=== PATIENT | female | born 1970 | race Hispanic/Latino ===

== ENCOUNTER → 2018-02-20 09:25 | Outpatient (CLI) | payer OTHER, SELFPAY ==
[2018-02-23 10:31] LABS: HPV Reflexed? NOT INDICATED
== END ==
PROVIDERS: Visit Provider Obstetrics & Gynecology
DX: Z12.4 Encounter for screening for malignant neoplasm of cervix (principal)
CPT/HCPCS: 88175; G0145

== ENCOUNTER → 2018-05-31 13:22 | Outpatient (CLI) | payer OTHER, SELFPAY ==
--- NOTE | 2018-05-31 13:26 | BI_ITS ---
MAMMOGRAPHY - BILATERAL SCREENING REASON FOR EXAM: Female, 48 years old. Routine annual screening examination. PERTINENT HISTORY: Non-contributory. TECHNIQUE: Digital bilateral breast amrik (3D mammographic acquisition) in the CC and MLO projections. 2-D mediolateral oblique (MLO) and craniocaudad (CC) views of both breasts were obtained. CAD: Full Field Digital Mammography with Computer Added Detection was performed. COMPARISON: Comparison is made with prior study dated May 30, 2017 and May 06, 2016. FINDINGS: Breast Composition: The breasts are heterogeneously dense, which may obscure small masses. There are no dominant masses or suspicious calcifications. No other significant abnormalities are identified. There has been no significant change since the prior study. BI/SCREENING MAMM (CAD), BILAT IMPRESSION: Stable bilateral screening mammogram. Yearly follow-up mammogram recommended. (A) ASSESSMENT CATEGORY: BIRADS Category 1: Negative. A letter regarding these results will be sent to the patient by the facility within 30 days. Approximately 10% of breast cancers are not detected by mammography. A normal mammogram should not delay biopsy of a clinically suspicious abnormality. [id number] Electronically Signed: Mike León MD at 15:14 EDT Tel [phone], Service support ,
== END ==
PROVIDERS: Family Provider Family Medicine; PCP Family Medicine; Visit Provider Obstetrics & Gynecology
DX: Z12.31 Encounter for screening mammogram for malignant neoplasm of breast (principal)
CPT/HCPCS: 77063; 77067

== ENCOUNTER 2019-03-22 08:08 | Observation (INO) | payer OTHER, SELFPAY ==
[2019-03-22] VITALS (13 sets, daily range): BP systolic 96–132; BP diastolic 53–80; PULSE 85–112; RESP 12–26; TEMP 36.2–37.1; O2SAT 87–98; BMI 33.0; BMI 33.4
--- NOTE | 2019-03-22 08:32 | RAD_ITS ---
STUDY: X-RAY CHEST REASON FOR EXAM: Female, 49 years old. Cough and shortness of breath. TECHNIQUE: PA and lateral views of the chest. COMPARISON: Comparison is made with prior study dated August 21, 2014. FINDINGS: The lungs are clear and expanded. There is no demonstrated pleural abnormality. Normal size heart. Normal mediastinum and lionel. Normal visualized pulmonary arteries. Normal visualized aortic arch and descending thoracic aorta. Normal visualized thoracic spine. Normal visualized ribs, clavicles, and shoulders. There is no demonstrated abnormality of the visualized soft tissue structures of the upper abdomen. RAD/Chest PA and Lateral IMPRESSION: Normal x-ray examination of the chest. Electronically Signed: Mike León, at 9:39 EDT , Service support ,
--- NOTE | 2019-03-22 08:34 | ED.VISSUMM ---
- ER Visit Summary Date of Service: 03/22/19 Chief Complaint: Dyspnea History of Present Illness: The patient is a 49 F who presents emergency department with a cough and shortness of breath. Patient states this is been progressive for 1 week. Significantly worse over the past 2 days. She notes a history of asthma. She has been using a nebulizer twice a day with no relief. She denies any fever. She denies any phlegm production. Former smoker. She sees [facility] pulmonology Dr. Jimenez. She notes that her asthma typically has flares in the change of seasons. She notes that the pollen this year has been very bad. Physical Examination: Afebrile vital signs are stable Gen: Well-nourished well-developed Head: Normocephalic atraumatic Eyes: Perrl EOMI ENT: TMs clear no rhinorrhea moist mucous membranes Neck: Supple no lymphadenopathy no JVD nontender CVS: Regular tachycardic rate rhythm no murmurs normal S1-S2 Respiratory: Patient with coughing fits. She has diminished breath sounds bilaterally and faint expiratory wheezing. Chest nontender Abdomen: Soft nontender nondistended normal bowel sounds no masses Back: Nontender Extremity: Nontender no edema Skin: Normal color no rash Neuro: alert orientated ?3 CN II-XII intact normal strength sensation reflexes gait cerebellar Psych: Normal affect normal mood Test Results: Chest x-ray is obtained. Emergency Department Course and Treatment: Patient received prednisone, DuoNeb and 2 albuterol treatments. After the breathing treatments patient lung sounds were significantly improved. She had a brief period where her pulse ox was as low as 86%. After supplemental oxygen and rest. We remove the oxygen her pulse ox was 90 to 92%. She ambulated in the same range. He states her lungs feel much better. Once the patient got back to the room her pulse ox was down to 88% on room air. We will plan for an observational stay. Impression: 1. Acute exacerbation of asthma This note was generated with [employer] dictation software. It may contain incorrect words, spelling, and punctuation that were not noted in review of the chart prior to signing ED Disposition - Plan for ED Patient:
[2019-03-22] MEDS: predniSONE 20 MG Tablet 60 MG PO (08:36)
[2019-03-22] MEDS: Ipratropium/Albuterol Sulfate 3 ML AMPUL.NEB INHALATION ×4 (08:41→23:03)
[2019-03-22] MEDS: Albuterol 2.5 MG/3 ML VIAL.NEB. INHALATION ×3 (08:41→09:10)
--- NOTE | 2019-03-22 08:41 | ED.DCSUM_ITS ---
- ER Visit Summary Date of Service: 03/22/19 Chief Complaint: Dyspnea History of Present Illness: The patient is a 49 F who presents emergency department with a cough and shortness of breath. Patient states this is been progressive for 1 week. Significantly worse over the past 2 days. She notes a history of asthma. She has been using a nebulizer twice a day with no relief. She denies any fever. She denies any phlegm production. Former smoker. She sees [facility] pulmonology Dr. Jimenez. She notes that her asthma typically has flares in the change of seasons. She notes that the pollen this year has been very bad. Physical Examination: Afebrile vital signs are stable Gen: Well-nourished well-developed Head: Normocephalic atraumatic Eyes: Perrl EOMI ENT: TMs clear no rhinorrhea moist mucous membranes Neck: Supple no lymphadenopathy no JVD nontender CVS: Regular tachycardic rate rhythm no murmurs normal S1-S2 Respiratory: Patient with coughing fits. She has diminished breath sounds bilaterally and faint expiratory wheezing. Chest nontender Abdomen: Soft nontender nondistended normal bowel sounds no masses Back: Nontender Extremity: Nontender no edema Skin: Normal color no rash Neuro: alert orientated ?3 CN II-XII intact normal strength sensation reflexes gait cerebellar Psych: Normal affect normal mood Test Results: Chest x-ray is obtained. Emergency Department Course and Treatment: Patient received prednisone, DuoNeb and 2 albuterol treatments. After the breathing treatments patient lung sounds were significantly improved. She had a brief period where her pulse ox was as low as 86%. After supplemental oxygen and rest. We remove the oxygen her pulse ox was 90 to 92%. She ambulated in the same range. He states her lungs feel much better. Once the patient got back to the room her pulse ox was down to 88% on room air. We will plan for an observational stay. Impression: 1. Acute exacerbation of asthma This note was generated with [employer] dictation software. It may contain incorrect words, spelling, and punctuation that were not noted in review of the chart prior to signing ED Disposition - Plan for ED Patient:
--- NOTE | 2019-03-22 09:50 | NURSING ---
DR SILVERIO NOTIFIED SPO2=86-87% ON RA AT REST. WHEN AWAKE SPO2 INCREASES TO 91%. O2 PLACED AT 2L NC. STATES HE WILL PLACE NEW ORDERS.
[2019-03-22 10:10] LABS: Absolute Lymphocyte Count 1.23 X10^3/ul (0.83-4.51); Absolute Neutrophil Count 7.7 X10^3/uL (2.0-7.7); Basophil# 0.01 X10^3/uL; Basophil% 0.1 % (0-1); Eosinophil# 0.75 X10^3/uL; Eosinophils% 7.4 % (0-5); Lymphocyte # 1.23 X10^3/ul (4.0); Lymphocyte % 12.1 % (19-41); Mean Corp Hgb Conc 30.3 g/gl (32-36); Mean Corpuscular Hgb 22.3 pg (27.0-32.0); Mean Corpuscular Volume 73.5 fL (81-99); Mean Platelet Vol. 9.2 fl (6.2-12.0); Monocyte% 4.9 % (0-10); Neutrophil % 75.4 % (47-70); Platelet Count 256 K/mm3 (150-450); RBC Distribution Width SD 42.8 fl (35.1-43.9); Red Blood Count 4.49 M/mm3 (4.2-5.4); White Blood Count 10.2 K/mm3 (4.4-11.0)
[2019-03-22 10:12] LABS: Differential Indicated SCAN CRITERIA MET; POSITIVE COUNT NO; POSITIVE DIFFERENTIAL NO; POSITIVE MORPHOLOGY YES
[2019-03-22 10:24] LABS: Anion Gap 9 (5-15); BUN 8 mg/dL (7-18); BUN/Creat Ratio 9.5 RATIO (10-20); Calcium,Total 8.4 mg/dL (8.5-10.1); Chloride 107 mmol/L (98-107); Creatinine, Serum 0.84 mg/dL (0.55-1.02); EST Glomerular Filtration Rate 76 mL/min (>60); Est Glom Filt Rate - Afr Amer 92 mL/min (>60); Estimated Creatinine Clearance 61.13 ml/min; Glucose 117 mg/dL (74-106); Potassium 3.4 mmol/L (3.5-5.1); Sodium Level 140 mmol/L (136-145)
--- NOTE | 2019-03-22 11:03 | ED.RN ---
THIS RN TO BEDSIDE TO DISCHARGE PATIENT, PULSE OX 88% ON ROOM AIR, DR. SILVERIO MADE AWARE.
--- NOTE | 2019-03-22 11:32 | HP.PCM_ITS ---
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 It also has dry cough and bilateral chest pain on coughing, pleuritic in nature. Shortness of breath and cough started a week ago and she got Protonix from her realty loan specialist initially she felt better for 2 days but got worse. Denies sick contact or fever, chills or sinus congestion or postnasal drip. In ER, she is found hypoxic 87% on room air, tachypneic RR 26/min, labored breathing and mild tachycardic. No fever or chills. Chest x-ray does not show acute abnormality. Past Medical History Past Medical History (Chronic Problems): Chronic Problems GERD (Chronic) Allergies codeine Adverse Reaction (Verified 03/22/19 08:09) Nausea Home Medications: Ambulatory Orders Medication Instructions Recorded Albuterol Aerosols [Ventolin 2.5 mg INHALATION Q4H PRN PRN 08/24/14 Aerosols] Albuterol IH (ProAir) [Proair Hfa] 2 puff INHALATION Q4H PRN PRN 08/24/14 Citalopram [Celexa] 10 mg PO DAILY 08/24/14 Montelukast [Singulair] 10 mg PO DAILY 03/22/19 Pantoprazole Sodium [Protonix] 40 mg PO DAILY 03/22/19 Risperidone [Risperdal] 0.5 mg PO DAILY 03/22/19 Smoking Status: Former smoker - Quit in 2008. Started to smoking cigarette in 20s, about 18 to 19 pack years smoking - *Family History Maternal History Items: - - Maternal grandmother has asthma. Review of Systems Constitutional: Denies: Chills, Fever, Weight Change HEENT: Reports: Head Aches. Denies: Sinus Congestion, Sinus Drainage Cardiovascular: Reports: Chest Pain. Denies: Palpitations Respiratory: Reports: Cough, Pleuritic Pain, Shortness of Breath, Shortness of breath at rest, Shortness of breath upon exertion, Wheezing. Denies: Sputum production Gastrointestinal: Denies: Abdominal Pain, Nausea, Vomiting Genitourinary: Denies: Dysuria Musculoskeletal: Denies: Joint Pain, Joint Tenderness Skin: Denies: Rash, Wounds Neurological: Denies: Numbness, Tingling, Focal weakness Psychiatric: Denies: Anxiety, Depression, Homicidal Ideations, Suicidal Ideations Hematologic/ Lymphatic: Denies: Easy Bruising, Easy Bleeding VTE Information - Inpt Only VTE Present on Admission: No VTE Mechan Device Prophylaxis: None VTE Pharm Prophylaxis ordered?: Yes Patient Problems: Active and Suspected Problems Asthma exacerbation (Acute) - Physical Exam General: Alert, Oriented x3, Cooperative HEENT: Atraumatic, PERRLA, EOMI, Normocephalic Oral: Dry Mucosa Neck: Supple, No JVD, Negative Carotid Bruits Lungs: Diminished - Entry is diminished bilaterally., Short of Breath, Tachypneic, Using Accessory Muscles, Wheezes Cardiovascular: Regular rate, Regular Rhythm, Normal S1, Normal S2, No murmurs Abdomen: Bowel Sounds Present, Soft, Non Tender, Non-Distended Extremities: No edema, Capillary Refill Less than 3 Seconds Skin: No rashes, No breakdown Musculoskeletal: No Tenderness to Palpation of Joints or Extremities Lymphatic: No Cervical, Supraclavicular, or Inguinal Adenopathy Neurological: Cranial nerves II-XII grossly intact, Deep Tendon Reflexes 2+/4 and Symmetrical, Neuro grossly intact, Motor Exam 5/5 strength throughout Psych/Mental Status: Normal Affect, Appropriate Vital Signs Temp Pulse Resp BP Pulse Ox 98.7 F 102 H 22 H 96/53 L 92 03/22/19 10:51 03/22/19 10:51 03/22/19 10:51 03/22/19 10:51 03/22/19 11:05 Oxygen Flow Rate (L/min) 2 Oxygen Delivery Method Nasal Cannula Weight: 175 lb 0.752 oz Body Mass Index (BMI) 33.0 Laboratory Tests Past 24 Hrs 03/22/19 03/22/19 09:59 09:59 WBC 10.2 RBC 4.49 Hgb 10.0 L Hct 33.0 L MCV 73.5 L MCH 22.3 L MCHC 30.3 L RDW 16.0 H RDW Differential 42.8 Plt Count 256 MPV 9.2 Immature Gran % (Auto) 0.100 Neut % (Auto) 75.4 H Lymph % (Auto) 12.1 L [place] % (Auto) 4.9 Eos % (Auto) 7.4 H Baso % (Auto) 0.1 Absolute Neuts (auto) 7.7 Absolute Lymphs (auto) 1.23 Total Counted Not Reportable Differential Comment COMMENT Sodium 140 Potassium 3.4 L Chloride 107 Carbon Dioxide 24.0 Anion Gap 9 BUN 8 Creatinine 0.84 Estim Creat Clear Calc 61.13 Est GFR (MDRD) Af Amer 92 Est GFR (MDRD) Non-Af 76 BUN/Creatinine Ratio 9.5 L Glucose 117 H Calcium 8.4 L Assessment/Plan All Active Problems Asthma exacerbation (Acute) The patient is a 49 year old F with history of asthma diagnosed 2015, 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 It also has dry cough and bilateral chest pain on coughing, pleuritic in nature. Shortness of breath and cough started a week ago and she got Protonix from her realty loan specialist initially she felt better for 2 days but got worse. Denies sick contact or fever, chills or sinus congestion or postnasal drip. In ER, she is found hypoxic 87% on room air, tachypneic RR 26/min, labored breathing and mild tachycardic. No fever or chills. Chest x-ray does not show acute abnormality. 1. Acute asthma exacerbation with acute respiratory distress/insufficiency: Patient is being admitted on MedSurg floor. Oxygen therapy to keep pulse ox 90%. On bronchodilator, IV Solu-Medrol 40 mg every 6 hourly, chest physiotherapy and Mucinex. She is not using steroid inhaler at home but just only on pro-air. 2. Bilateral pleuritic chest pain from cough: Supportive management for cough. Symptoms mainly pleuritic from cough. Twelve-lead EKG and troponin ordered. 3. GERD: Continue Protonix. 4. Mild hypokalemia: Potassium replaced. 5. Hyperglycemia in BMP: Glucose 117. Unclear whether it is steroid-induced but I do not see prednisone in her home medication. A1C ordered for tomorrow. DVT prophylaxis: Lovenox 40 mg subcu daily Laboratory Results 03/22/19 09:59: WBC 10.2, RBC 4.49, Hgb 10.0 L, Hct 33.0 L, MCV 73.5 L, MCH 22.3 L, MCHC 30.3 L, RDW 16.0 H, RDW Differential 42.8, Plt Count 256, MPV 9.2, Immature Gran % (Auto) 0.100, Neut % (Auto) 75.4 H, Lymph % (Auto) 12.1 L, [place] % (Auto) 4.9, Eos % (Auto) 7.4 H, Baso % (Auto) 0.1, Absolute Neuts (auto) 7.7, Absolute Lymphs (auto) 1.23, Total Counted Not Reportable, Differential Comment COMMENT 03/22/19 09:59: Sodium 140, Potassium 3.4 L, Chloride 107, Carbon Dioxide 24.0, Anion Gap 9, BUN 8, Creatinine 0.84, Estim Creat Clear Calc 61.13, Est GFR (MDRD) Af Amer 92, Est GFR (MDRD) Non-Af 76, BUN/Creatinine Ratio 9.5 L, Glucose 117 H, Calcium 8.4 L Clinical Impression(s) from Imaging Studies Chest X-Ray 03/22/19 08:32 IMPRESSION: Normal x-ray examination of the chest. Code Visit Inpatient E&M: 68346 Subs Hosp L3
--- NOTE | 2019-03-22 11:52 | CASEMGMT ---
RN CM Assessment Introduced role of RN CM to patient.? Patient is alert, oriented and able?to participate in RN CM Assessment. ?Care providers, pharmacy, and demographics verified. Presentation: SOB Admit Dx: Asthma Exacerbation Re-Admit: No Barriers/Issues: None PCP: Gus Yu Specialists: Danilo- Dr Portillo Preferred Pharmacy: [facility] Insurance: MMO Rx Benefit: Yes? LNOK: Friend Yasmin Yadav LW/HPOA: Yes thinks has done both but never picked up, States [facility] her Father Abdifatah Simmons Living Arrangements:?Lives with her son in a SS Home, 3-4 steps to enter ADL?s: Independent with ADL's Transportation: Patient drives, drove self to hospital and plans on driving on [place] DME: [facility]: None. 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 SNF: None Goal: Home and does not think will need anything DC PLAN: Home with no anticipated needs identified at this time. Chuy Parra RNCM
--- NOTE | 2019-03-22 11:55 | EKG12_ITS ---
Test Reason : ADMISSION Blood Pressure : / mmHG Vent. Rate : 084 BPM Atrial Rate : 084 BPM P-R Int : 170 ms QRS Dur : 086 ms QT Int : 378 ms P-R-T Axes : 054 -15 037 degrees QTc Int : 446 ms Normal sinus rhythm Normal ECG Confirmed by MATILDE TAYLOR ([id number]), communications editor LESLIE POOLE ([id number]) on 03/26/2019 2:28:38 PM Referred By: JÚNIOR Confirmed By:MAHI TAYLOR
[2019-03-22] MEDS: Enoxaparin 40 MG/0.4 ML Syringe SC (12:54)
[2019-03-22] MEDS: Benzonatate 100 MG Capsule 200 MG PO ×2 (12:54→21:04)
[2019-03-22] MEDS: 0.9% Normal Saline 1,000 ML 75 ML IV (12:57)
--- NOTE | 2019-03-22 15:23 | NURSING ---
attempted to place pt on ra. sats 89% 2l nc replaced on pt.
--- NOTE | 2019-03-22 16:36 | CPS ---
1523: Patient's sats 89% after breathing treatment, placed on 1lpm nasal cannula. RN aware.
[2019-03-22] MEDS: guaiFENesin 1,200 MG Tablet 1200 MG PO (21:04)
[2019-03-22] MEDS: RisperiDONE 0.5 MG Tablet PO (21:04)
[2019-03-22] MEDS: Citalopram 10 MG Tablet PO (21:04)
[2019-03-22] MEDS: Pantoprazole Sodium 40 MG Tablet PO (21:04)
[2019-03-22] MEDS: Montelukast 10 MG Tablet PO (21:05)
[2019-03-22] MEDS: Acetaminophen 325 MG Tablet 650 MG PO (22:08)
[2019-03-23 02:07] VITALS: BP 123/90; PULSE 74; RESP 18; TEMP 36.8; O2SAT 98
[2019-03-23] MEDS: Ipratropium/Albuterol Sulfate 3 ML AMPUL.NEB INHALATION ×2 (02:46→07:22)
[2019-03-23 02:47] VITALS: PULSE 83; RESP 20
[2019-03-23] MEDS: Benzonatate 100 MG Capsule 200 MG PO (05:13)
[2019-03-23] MEDS: 0.9% NaCl Peripheral Flush Adult/Peds IV (05:16)
[2019-03-23 06:25] LABS: Absolute Lymphocyte Count 1.06 X10^3/ul (0.83-4.51); Absolute Neutrophil Count 14.9 X10^3/uL (2.0-7.7); Hematocrit 34.1 % (37-47); Hemoglobin 10.3 g/dl (12.0-15.0); Lymphocyte # 1.06 X10^3/ul (4.0); Lymphocyte % 6.3 % (19-41); Mean Corp Hgb Conc 30.2 g/gl (32-36); Mean Corpuscular Hgb 21.8 pg (27.0-32.0); Mean Corpuscular Volume 72.2 fL (81-99); Mean Platelet Vol. 9.9 fl (6.2-12.0); Monocyte# 0.72 X10^3/uL; Monocyte% 4.3 % (0-10); Neutrophil # 14.88 X10^3/uL (2.7-7.7); Neutrophil % 89.1 % (47-70); Platelet Count 308 K/mm3 (150-450); RBC Distribution Width CV 16.1 % (11.6-14.6); RBC Distribution Width SD 41.6 fl (35.1-43.9); Red Blood Count 4.72 M/mm3 (4.2-5.4); White Blood Count 16.7 K/mm3 (4.4-11.0)
[2019-03-23 06:30] LABS: POSITIVE COUNT NO; POSITIVE DIFFERENTIAL NO
[2019-03-23 06:31] LABS: Differential Indicated SCAN CRITERIA MET; POSITIVE MORPHOLOGY YES
[2019-03-23 06:47] LABS: Anisocytosis 1+; Differential Comment SCAN; Hypochromasia 1+; Microcytosis 1+; Platelet Estimate ADEQUATE (ADEQ); Platelet Morphology LARGE; Polychromasia 1+
[2019-03-23 07:22] VITALS: PULSE 72; RESP 20; O2SAT 96
[2019-03-23 08:08] VITALS: BP 113/61; PULSE 89; RESP 20; TEMP 36.6; O2SAT 96
[2019-03-23 08:32] VITALS: O2SAT 95
--- NOTE | 2019-03-23 08:32 | NURSING ---
Patient walked in halls. Spoke in complete sentences, no SOB. Did cough a few times but no distress or difficulty with keeping O2 sats greater than 94% on RA
--- NOTE | 2019-03-23 09:03 | DCINST_ITS ---
- Discharge Diagnoses Current Active Problems: Current Active and Chronic Problems Asthma exacerbation (Acute) GERD (Chronic) You will use the following diet at home:: Regular Your food should be the consistency of: Regular Discharge Activity: May Not Drive - for 2 days Call your doctor if you observe: Fever of 101 or Higher, Inability to urinate, Inability to have a bowel movement, Shortness of breath, Dizziness, Fainting spells, Swelling in the ankles, Prolonged hiccoughing, Increased palpitations (irregular heartbeat) Allergies/Adverse Reactions: Allergies No Known Allergies Allergy (Verified 03/22/19 12:21) Medications to take at Discharge Albuterol Aerosols [Ventolin Aerosols] 2.5 mg INHALATION Q4H PRN PRN 08/24/14 Albuterol IH (ProAir) [Proair Hfa] 2 puff INHALATION Q4H PRN PRN 08/24/14 Citalopram [Celexa] 10 mg PO DAILY 08/24/14 Montelukast [Singulair] 10 mg PO DAILY 03/22/19 Pantoprazole Sodium [Protonix] 40 mg PO DAILY 03/22/19 Risperidone [Risperdal] 0.5 mg PO DAILY 03/22/19 Benzonatate [Tessalon Perle] 200 mg PO TID PRN PRN #20 capsule 03/23/19 Guaifenesin [Mucinex] 1,200 mg PO BID #14 tablet 03/23/19 Prednisone 10 mg PO UD #30 tab 03/23/19 The following prescriptions were given: Benzonatate [Tessalon Perle] 200 mg PO TID PRN PRN #20 capsule PRN Reason: cough Prednisone 10 mg PO UD #30 tab Guaifenesin [Mucinex] 1,200 mg PO BID #14 tablet Primary Care Physician: Gus Yu MD [Primary Care Provider] - Please follow up with your Primary Care Physician in: in 2 weeks Test Results: Test results from this visit will be discussed in further detail at your follow- up appointment, if applicable. Please Follow Up With: Kwasi Portillo MD When: in 2 weeks for asthma exa/allergy
--- NOTE | 2019-03-23 09:04 | DS.PCM_ITS ---
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 It also has dry cough and bilateral chest pain on coughing, pleuritic in nature. Shortness of breath and cough started a week ago and she got Protonix from her corn lab technician initially she felt better for 2 days but got worse. Denies sick contact or fever, chills or sinus congestion or postnasal drip. In ER, she is found hypoxic 87% on room air, tachypneic RR 26/min, labored breathing and mild tachycardic. No fever or chills. Chest x-ray does not show acute abnormality. 1. Acute asthma exacerbation with acute respiratory distress/insufficiency, most probably precipitated by seasonal allergy to pollens: Patient is being admitted on MedSurg floor. Oxygen therapy to keep pulse ox 90%. On bron chodilator, IV Solu-Medrol 40 mg every 6 hourly, chest physiotherapy and Mucinex. She is not using steroid inhaler at home but just only on pro-air. Patient is on Singulair. She claims he has a steroid inhaler at home which she is twice daily but she feels yesterday. Patient wants to go home. Discharged on tapering dose of prednisone, Singulair, Mucinex and Tessalon cough medicine. She has follow-up with Dr Portillo. Advised to take Pulmicort or Asmanex steroid inhaler. She may be benefited with air filter mask when she goes outside and use albuterol inhaler half an hour before exercise. 2. Bilateral pleuritic chest pain from cough: Supportive management for cough. Symptoms mainly pleuritic from cough. Troponin is normal. Twelve-lead EKG shows normal sinus rhythm at 84 bpm. Reported as normal EKG 3. GERD: Continue Protonix. 4. Mild hypokalemia: Potassium replaced. 5. Hyperglycemia in BMP: Glucose 117. A1c 5.5. It is normal. DVT prophylaxis: Lovenox 40 mg subcu daily Patient was admitted as inpatient but was discharged because of sooner recovery than expected the time of admission Microbiology Past 72 Hours 03/22/19 13:22 Mucosa - Nasopharyngeal Respiratory Panel (PCR) - Final Laboratory Results 03/22/19 12:05: Troponin I < 0.015 03/23/19 05:50: WBC 16.7 H, RBC 4.72, Hgb 10.3 L, Hct 34.1 L, MCV 72.2 L, MCH 21.8 L, MCHC 30.2 L, RDW 16.1 H, RDW Differential 41.6, Plt Count 308, MPV 9.9, Immature Gran % (Auto) 0.300, Neut % (Auto) 89.1 H, Lymph % (Auto) 6.3 L, [place] % (Auto) 4.3, Eos % (Auto) 0.0, Baso % (Auto) 0.0, Absolute Neuts (auto) 14.9 H, Absolute Lymphs (auto) 1.06, Total Counted Not Reportable, Differential Comment SCAN, Platelet Estimate ADEQUATE, Plt Morphology Comment LARGE, Polychromasia 1+, Hypochromasia 1+, Anisocytosis 1+, Microcytosis 1+ 03/23/19 05:50: Hemoglobin A1c 5.5 Clinical Impression(s) from Imaging Studies Chest X-Ray 03/22/19 08:32 IMPRESSION: Normal x-ray examination of the chest. Subjective: Patient is seen and examined. Shortness of breath is much better. Patient is less wheezing. Patient pulse ox checked and she is off the oxygen. Pulse ox 96% on room air. No tachypnea. No fever. Patient thinks respiratory failure might be seasonal allergic response to pollens - Physical Exam General: Alert, Oriented x3, Cooperative HEENT: Atraumatic, PERRLA, EOMI, Normocephalic Neck: Supple, No JVD, Negative Carotid Bruits Lungs: Clear to auscultation, No rhonchi, No wheeze, No rales, Diminished - Air entry as was significantly improved. Cardiovascular: Regular rate, Regular Rhythm, Normal S1, Normal S2, No murmurs Abdomen: Bowel Sounds Present, Soft, Non Tender, Non-Distended Extremities: No edema, Capillary Refill Less than 3 Seconds Skin: No rashes, No breakdown Musculoskeletal: No Tenderness to Palpation of Joints or Extremities Lymphatic: No Cervical, Supraclavicular, or Inguinal Adenopathy Neurological: Cranial nerves II-XII grossly intact, Deep Tendon Reflexes 2+/4 and Symmetrical, Neuro grossly intact Psych/Mental Status: Normal Affect, Appropriate Vital Signs Temp Pulse Resp BP Pulse Ox 97.9 F 89 20 H 113/61 95 03/23/19 08:08 03/23/19 08:08 03/23/19 08:08 03/23/19 08:08 03/23/19 08:32 Oxygen Flow Rate (L/min) 2 Oxygen Delivery Method Room Air Weight: 177 lb 0.752 oz Body Mass Index (BMI) 33.4 Intake and Output for Last 24 Hours 03/21/19 03/22/19 03/23/19 23:59 23:59 23:59 Intake Total 2015 320 / 320 Balance 2015 320 / 320 Microbiology Past 72 Hours 03/22/19 13:22 Respiratory Panel (PCR) - Final Mucosa - Nasopharyngeal Laboratory Tests Past 24 Hrs 03/22/19 03/22/19 03/22/19 09:59 09:59 12:05 WBC 10.2 RBC 4.49 Hgb 10.0 L Hct 33.0 L MCV 73.5 L MCH 22.3 L MCHC 30.3 L RDW 16.0 H RDW Differential 42.8 Plt Count 256 MPV 9.2 Immature Gran % (Auto) 0.100 Neut % (Auto) 75.4 H Lymph % (Auto) 12.1 L [place] % (Auto) 4.9 Eos % (Auto) 7.4 H Baso % (Auto) 0.1 Absolute Neuts (auto) 7.7 Absolute Lymphs (auto) 1.23 Total Counted Not Reportable Differential Comment COMMENT Platelet Estimate Plt Morphology Comment Polychromasia Hypochromasia Anisocytosis Microcytosis Sodium 140 Potassium 3.4 L Chloride 107 Carbon Dioxide 24.0 Anion Gap 9 BUN 8 Creatinine 0.84 Estim Creat Clear Calc 61.13 Est GFR (MDRD) Af Amer 92 Est GFR (MDRD) Non-Af 76 BUN/Creatinine Ratio 9.5 L Glucose 117 H Hemoglobin A1c Calcium 8.4 L Troponin I < 0.015 03/23/19 03/23/19 05:50 05:50 WBC 16.7 H RBC 4.72 Hgb 10.3 L Hct 34.1 L MCV 72.2 L MCH 21.8 L MCHC 30.2 L RDW 16.1 H RDW Differential 41.6 Plt Count 308 MPV 9.9 Immature Gran % (Auto) 0.300 Neut % (Auto) 89.1 H Lymph % (Auto) 6.3 L [place] % (Auto) 4.3 Eos % (Auto) 0.0 Baso % (Auto) 0.0 Absolute Neuts (auto) 14.9 H Absolute Lymphs (auto) 1.06 Total Counted Not Reportable Differential Comment SCAN Platelet Estimate ADEQUATE Plt Morphology Comment LARGE Polychromasia 1+ Hypochromasia 1+ Anisocytosis 1+ Microcytosis 1+ Sodium Potassium Chloride Carbon Dioxide Anion Gap BUN Creatinine Estim Creat Clear Calc Est GFR (MDRD) Af Amer Est GFR (MDRD) Non-Af BUN/Creatinine Ratio Glucose Hemoglobin A1c Pending Calcium Troponin I Discharge Activity: May Not Drive - for 2 days Call your doctor if you observe: Fever of 101 or Higher, Inability to urinate, Inability to have a bowel movement, Shortness of breath, Dizziness, Fainting spells, Swelling in the ankles, Prolonged hiccoughing, Increased palpitations (irregular heartbeat) Home Medications: Medications to take at Discharge Albuterol Aerosols [Ventolin Aerosols] 2.5 mg INHALATION Q4H PRN PRN 08/24/14 Albuterol IH (ProAir) [Proair Hfa] 2 puff INHALATION Q4H PRN PRN 08/24/14 Citalopram [Celexa] 10 mg PO DAILY 08/24/14 Montelukast [Singulair] 10 mg PO DAILY 03/22/19 Pantoprazole Sodium [Protonix] 40 mg PO DAILY 03/22/19 Risperidone [Risperdal] 0.5 mg PO DAILY 03/22/19 Benzonatate [Tessalon Perle] 200 mg PO TID PRN PRN #20 capsule 03/23/19 Guaifenesin [Mucinex] 1,200 mg PO BID #14 tablet 03/23/19 Prednisone 10 mg PO UD #30 tab 03/23/19 Following Prescrptions Were Given to Patient: Benzonatate [Tessalon Perle] 200 mg PO TID PRN PRN #20 capsule PRN Reason: cough Prednisone 10 mg PO UD #30 tab Guaifenesin [Mucinex] 1,200 mg PO BID #14 tablet Primary Care Physician: Gus Yu MD [Primary Care Provider] - Please follow up with your Primary Care Physician in: in 2 weeks Please Follow Up With: Kwasi Portillo MD When: in 2 weeks for asthma exa/allergy Medical Necessity - Tobacco Use Smoking Status: Former smoker Meaningful Use Info Meaningful Use Diagnoses (Choose all that apply): None applicable Code Visit Inpatient E&M: 30736 Disch Hosp
[2019-03-23 10:03] LABS: Hemoglobin A1c 5.5 % (4.2-6.3)
[2019-03-23] MEDS: guaiFENesin 1,200 MG Tablet 1200 MG PO (10:38)
[2019-03-23 10:47] VITALS: BP 110/67; PULSE 81; RESP 18; TEMP 36.8; O2SAT 93
== END 2019-03-23 10:48 | disposition home or self-care (01) ==
LOC: ED 11:14 → MS3 11:58
PROVIDERS: Admitting Provider Internal Medicine; Emergency Provider Emergency Medicine; Family Provider Family Medicine; PCP Family Medicine; Visit Provider Internal Medicine
DX: J45.901 Unspecified asthma with (acute) exacerbation (principal); K21.9 Gastro-esophageal reflux disease without esophagitis; Z87.891 Personal history of nicotine dependence; Z79.899 Other long term (current) drug therapy; E87.6 Hypokalemia; R73.9 Hyperglycemia, unspecified
CPT/HCPCS: 36415; 71046; 80048; 83036; 84484; 85025; 87633; 93005; 94640; 96361; 96372; 96374; 96376; 99218; 99284; J7030; A4216; G0378

== ENCOUNTER 2019-11-14 07:44 | Emergency (ER) | payer SELFPAY ==
[2019-03-22 12:23] VITALS: BMI 33.4
[2019-11-14 07:47] VITALS: BP 126/81; PULSE 106; RESP 20; TEMP 36.8; O2SAT 93; BMI 31.4
[2019-11-14 07:58] VITALS: PULSE 90; RESP 19; O2SAT 96
--- NOTE | 2019-11-14 07:58 | RAD_ITS ---
STUDY: X-RAY - SOFT TISSUE NECK REASON FOR EXAM: Female, 49 years old. INCREASED SOB, COUGH AND WHEEZING STARTING YESTERDAY -- HX OF ASTHMA TECHNIQUE: 2 view(s) of the neck were obtained. COMPARISON: None. FINDINGS: There is adenotonsillar hypertrophy with mild oral pharyngeal airway narrowing. Normal epiglottis. Normal visualized subglottic tracheal air column. Normal prevertebral soft tissue structures. There are minimal degenerative changes of the cervical spine at C5-C6 and C6-C7. The soft tissue structures are unremarkable. RAD/Neck for Soft Tissue IMPRESSION: There is adenotonsillar hypertrophy with mild oral pharyngeal airway narrowing. Electronically Signed: Toyin Echols, at 11:11 EST Tel , Service support ,
--- NOTE | 2019-11-14 07:58 | RAD_ITS ---
STUDY: X-RAY CHEST REASON FOR EXAM: Female, 49 years old. INCREASED SOB, COUGH AND WHEEZING STARTING YESTERDAY -- HX OF ASTHMA TECHNIQUE: PA and lateral views of the chest. COMPARISON: 03/22/2019 FINDINGS: There are superimposed monitor leads. There is no focal parenchymal abnormality. There is no demonstrated pleural abnormality. Normal size heart. Normal mediastinum and lionel. Normal visualized pulmonary arteries. Normal visualized aortic arch and descending thoracic aorta. Normal visualized thoracic spine. Normal visualized ribs, clavicles, and shoulders. There is no demonstrated abnormality of the visualized soft tissue structures of the upper abdomen. RAD/Chest PA and Lateral IMPRESSION: No acute cardiopulmonary disease. No significant interval change. Electronically Signed: Carmen Wiley MD at 9:15 EST , Service support ,
--- NOTE | 2019-11-14 08:02 | ED.VIS.GEN ---
History of Present Illness Chief Complaint: Asthma Informant: Patient Onset: Yesterday Context: Sudden Onset Timing: Continuous Quality: Wheezing Location: Respiratory Current Severity: Mild Maximum Severity: Moderate Worsened by: Activity and coughing Relieved by: Better after using inhaler Associated Symptoms: Change in voice, mild throat discomfort, nonproductive cough Narrative: Patient is a middle-age woman who has past medical history of asthma. She is a non-smoker. She presents with 24-hour history of wheezing that has not gotten better with inhaler. She states she is using her inhaler every 15 to 30 minutes. She denies fever, chills night sweats. Denies headache, visual, ocular auditory symptoms. Denies neck pain or neck stiffness. She has mild throat discomfort. She does report change in voice. She does not feel her neck is swollen or narrowing. She is able to swallow. She denies chest discomfort. She denies weight gain or weight loss. She denies night sweats. She denies GI symptoms. There is no history of VTE. She denies leg pain, swelling or discoloration Prior similar symptoms: Yes Recent Illness/Hospitalization: No - Past Medical History (1) Asthma exacerbation Status: Acute (2) GERD Status: Chronic Past Medical History - Allergies and Home Meds Allergies/Adverse Reactions: Allergies No Known Allergies Allergy (Verified 11/14/19 07:46) Primary Care Physician: Gus Yu MD [Primary Care Provider] - Prior records reviewed: Yes - Per old records history of GERD Lives: Alone Smoking Status: Former smoker Alcohol: None Drugs: None - Family History Maternal Family History: Reports: - - Maternal grandmother has asthma. Review of Systems General: Reports: Malaise. Denies: Chills, Fever, Subjective, Sweats Eyes: Denies: Visual changes - bilaterally, Blurred Vision - bilaterally, Diplopia ENT: Reports: Sore throat, - - Reports change in voice.. Denies: Bilateral ear pain, Rhinorrhea Cardiovascular: Denies: Chest pain, Palpitations Respiratory: Reports: Dyspnea, Cough, Dyspnea on exertion. Denies: Sputum, Orthopnea, Paroxysmal nocturnal dyspnea Gastrointestinal: Denies: Abdominal pain, Nausea, Vomiting, Diarrhea, Melena, Hematochezia Musculoskeletal: Denies: Myalgias, Arthralgias, Neck pain, Back pain, Swelling, Extremity Pain, -, - Skin: Denies: Rash, Wounds Neurological: Denies: Headache, Weakness, Numbness Endocrine: Denies: Polyuria, Polydipsia Hematologic: Denies: Easy bruising, Easy bleeding Physical Exam Vital Signs/Narrative: Vital Signs Temp Pulse Resp BP Pulse Ox 11/14/19 07:47 98.2 F 106 H 20 H 126/81 H 93 Inital Vital Signs reviewed: Yes General: Well nourished, Well developed, - - Patient has audible wheezing. Head: Normocephalic, Atraumatic Eyes: Perrl, EOMI. Negative for: Pale conjunctiva, Scleral icterus ENT: Moist mucous membranes, No rhinorrhea, TM's clear, -. Negative for: Nasal congestion, Sinus tenderness Neck: Supple, Nontender, No lymphadenopathy, No JVD, - - Gait is midline. There is inspiratory and expiratory stridor appreciated. Cardiovascular: Regular rate, Regular rhythm, No murmurs, Normal S1, Normal S2 Respiratory: No distress, CTA bilaterally, Chest nontender Abdomen: Soft, Nontender, Nondistended, Normal bowel sounds, No masses Back: Nontender, Normal Inspection Extremities: Nontender, No edema Skin: Normal color, No rash, No Trauma. Negative for: Cyanosis, Diaphoresis, Jaundice Neurological: Alert, Oriented x3, Cranial nerves II-XII grossly intact, Normal Strength, Normal Sensation Psychological: Normal affect, Normal Mood Diagnostic/Tx/Re-eval Chest X-Ray - ED: 2 View, Read by ED Physician, Normal, Heart, Lungs, Mediastinum, Bony Structures, No Acute Disease, - - 2 view chest x-ray was obtained interpreted as normal by me. Two-view x-ray of soft tissue was obtained with no evidence of prevertebral swelling, epiglottitis. There is no swelling at the base of the tongue. The airway is patent. 11/14/19 07:58 Chest PA and Lateral [RAD] Stat Xray Neck Soft Tissue [Neck for Soft Tissue] [RAD] Stat Laboratory Results 11/14/19 08:10 WBC 12.6 H RBC 4.65 Hgb 13.2 Hct 40.5 MCV 87.1 MCH 28.4 MCHC 32.6 RDW Std Deviation 43.3 RDW Coeff of Gloria 15.8 H Plt Count 230 MPV 9.8 Immature Gran % (Auto) 0.600 Neut % (Auto) 76.6 H Lymph % (Auto) 10.8 L [place] % (Auto) 4.9 Eos % (Auto) 6.9 H Baso % (Auto) 0.2 Absolute Neuts (auto) 9.6 H Absolute Lymphs (auto) 1.36 Nucleated RBC % 0 CBC reveals elevated white count which is a nonspecific marker. There is no bandemia or shift. - Medical Decision Making Patient presents with history of asthma. She does have expiratory wheezing noted as well as stridor. This may represent laryngitis. Need to consider epiglottitis. Soft tissue x-ray of the neck was ordered. Because she is coughing chest x-ray was obtained to assess for pneumonia. Patient was treated with 125 mg Solu-Medrol and albuterol treatment. On reexamination patient has minimal residual wheezing right base only. Patient with discharge with prescription for spacer and prednisone. ED Disposition - Plan for ED Patient: Disposition: Home or Assisted Living Diagnosis: Acute asthma exacerbation, Viral upper respiratory illness Instructions: ASTHMA, Acute (Adult) Prescriptions: Prednisone [Deltasone] 40 mg PO DAILY #10 tab Transmission Status: Pending to [facility] [address] Inhaler, Assist Devices [Space Chamber Plus] 1 ea UD #1 spacer Transmission Status: Pending to [facility] [address] Referrals: Gus Yu MD [Primary Care Provider] - 1 Week if not improving
[2019-11-14 08:10] VITALS: PULSE 104; RESP 22; O2SAT 93
[2019-11-14] MEDS: Albuterol 2.5 MG/3 ML VIAL.NEB. INHALATION ×3 (08:10→08:37)
[2019-11-14] MEDS: MethylPREDNISolone 125 MG/2 ML Vial IV (08:12)
[2019-11-14 08:15] VITALS: O2SAT 96
[2019-11-14 08:28] LABS: Absolute Lymphocyte Count 1.36 X10^3/uL (0.83-4.51); Absolute Neutrophil Count 9.6 X10^3/uL (2.0-7.7); Basophil# 0.03 X10^3/uL; Basophil% 0.2 % (0-1); Eosinophil# 0.86 X10^3/uL; Eosinophils% 6.9 % (0-5); Hematocrit 40.5 % (37-47); Hemoglobin 13.2 g/dL (12.0-15.0); Lymphocyte # 1.36 X10^3/ul (4.0); Lymphocyte % 10.8 % (19-41); Mean Corp Hgb Conc 32.6 g/dL (32-36); Mean Corpuscular Hgb 28.4 pg (27.0-32.0); Mean Corpuscular Volume 87.1 fL (81-99); Mean Platelet Vol. 9.8 fl (6.2-12.0); Monocyte# 0.62 X10^3/uL; Monocyte% 4.9 % (0-10); NRBC Flagged by Analyzer 0 % (0-5); Neutrophil % 76.6 % (47-70); Platelet Count 230 K/mm3 (150-450); RBC Distribution Width CV 15.8 % (11.6-14.6); RBC Distribution Width SD 43.3 fl (35.1-43.9); Red Blood Count 4.65 M/mm3 (4.2-5.4); White Blood Count 12.6 K/mm3 (4.4-11.0)
[2019-11-14 08:38] VITALS: PULSE 105; RESP 22; O2SAT 96
[2019-11-14 09:17] VITALS: PULSE 104; RESP 20; O2SAT 97
== END 2019-11-14 09:19 | disposition home or self-care (01) ==
PROVIDERS: Emergency Provider Emergency Medicine; Family Provider Family Medicine; PCP Family Medicine
DX: J45.901 Unspecified asthma with (acute) exacerbation (principal); J06.9 Acute upper respiratory infection, unspecified; K21.9 Gastro-esophageal reflux disease without esophagitis; Z87.891 Personal history of nicotine dependence
CPT/HCPCS: 70360; 71046; 85025; 94640; 96374; 99251; 99285; A4216; G0463

== ENCOUNTER → 2020-07-31 11:14 | Outpatient (CLI) | payer MEDICAID, SELFPAY ==
[2020-07-31 12:26] LABS: Thyroid Stim Hormone (TSH) 1.05 uIU/mL (0.358-3.74)
== END ==
PROVIDERS: PCP Family Medicine; Visit Provider Student in an Organized Health Care Education/Training Program
DX: N64.52 Nipple discharge (principal)
CPT/HCPCS: 36415; 84146; 84443

== ENCOUNTER → 2020-08-05 13:23 | Outpatient (CLI) | payer MEDICAID, SELFPAY ==
--- NOTE | 2020-08-05 13:26 | BI_ITS ---
MAMMOGRAPHY - BILATERAL DIAGNOSTIC REASON FOR EXAM: Female, 50 years old. Right breast lump with right milky nipple discharge. PERTINENT HISTORY: Non-contributory. TECHNIQUE: Digital bilateral breast amrik (3D mammographic acquisition) in the CC and MLO projections. 2-D mediolateral oblique (MLO) and craniocaudad (CC) views of both breasts were obtained. CAD: Full Field Digital Mammography with Computer Added Detection was performed. COMPARISON: Comparison is made with prior study dated 05/31/2018 and 05/30/2017. FINDINGS: Breast Composition: The breasts are heterogeneously dense, which may obscure small masses. There are no dominant masses or suspicious calcifications. Stable benign-appearing right axillary lymph node. No other significant abnormalities are identified. There has been no significant change since the prior study. BI/DIAG MAMM W/CAD, BILAT IMPRESSION: Stable bilateral diagnostic mammogram. With the patient''s history of a palpable lump in the right breast and milky discharge, correlation with ultrasound is recommended. ASSESSMENT CATEGORY: BIRADS Category 0: Incomplete. Need additional imaging evaluation. A letter regarding these results will be sent to the patient by the facility within 30 days. Approximately 10% of breast cancers are not detected by mammography. A normal mammogram should not delay biopsy of a clinically suspicious abnormality. Electronically Signed: Mike León, at 15:00 EDT , Service support ,
--- NOTE | 2020-08-05 13:26 | US_ITS ---
STUDY: ULTRASOUND BREAST - RIGHT REASON FOR EXAM: Female, 50 years old. Palpable lump in the right breast. Right nipple discharge. TECHNIQUE: Axial and longitudinal images of the RIGHT breast were performed with a high resolution ultrasound transducer. # OF IMAGES: 22 COMPARISON: Comparison is made with prior mammogram done earlier today. FINDINGS: RIGHT Breast: There is a 9 mm x 15 mm x 8 mm solid nodule within a dilated duct in the retroareolar region of the breast. This may represent either inspissated mucus or possible papilloma. Biopsy is recommended. US/Breast Limited Unilateral IMPRESSION: The abnormality corresponds to a 9 mm x 15 mm x 8 mm solid nodule within a dilated duct in the retroareolar region of the breast. A biopsy is recommended to rule out a papillary abnormality versus inspissated mucus. ASSESSMENT CATEGORY: BIRADS Category 4: Suspicious - Biopsy Should Be Considered. A letter regarding these results will be sent to the patient by the facility within 30 days. Electronically Signed: Mike León, at 15:34 EDT , Service support ,
== END ==
PROVIDERS: PCP Family Medicine; Referring Provider Student in an Organized Health Care Education/Training Program; Visit Provider Student in an Organized Health Care Education/Training Program
DX: N63.41 Unspecified lump in right breast, subareolar (principal)
CPT/HCPCS: 76642; 77062; 77066; G0279

== ENCOUNTER → 2020-08-13 | Outpatient (CLI) | payer MEDICAID, SELFPAY ==
[2020-08-13 08:38] VITALS: BMI 31.4
--- NOTE | 2020-08-13 08:45 | BRBX_PTH ---
PATIENT: CHAUNCEY KENT LOC: [facility] U#:[id number] AGE/SX: 50/F ROOM: RE08/13/[address]: Dr. Mynor Ortiz MD : 1970 BED: DIS: 08/13/2020 SPEC #: [id number] RECD: 08/13/20 09:18 STATUS: BRITNI FREY #: [id number] SENA: 08/13/20 08:[address]: Mynor Ortiz DEPT: SURGICAL PATHOLOGY RECD BY: Prudencio Tenorio ENTERED: 08/13/20 10:41 SP TYPE: BREAST BX OTHR DR: Dr. Gus Yu MD Tissues: Right breast, NOS Procedures: Surgery Specimen Level IV HEADER OPERATION: Right breast biopsy PRE-OP DIAGNOSIS: Right breast mass TISSUE SUBMITTED: Right breast tissue MICROSCOPIC DIAGNOSIS Right breast, needle core biopsy: Fibrosis, acute and chronic inflammation and benign cyst contents. No evidence of malignancy. See comment. AM:senthil 08/14/20 COMMENT The lesion may represent cyst rupture, associated inflammation and reactive change. Clinical correlation is suggested. MICROSCOPIC DESCRIPTION Slides are reviewed. GROSS DESCRIPTION Received in fixative is one container labeled with the patient's name and designated right breast. The specimen consists of multiple irregular and elongated fragments of light smith-yellow soft tissue that in aggregate measure 2.5 x 1 x 0.1 cm. The specimen is totally submitted in one cassette. / AM:senthil 08/13/20 TC:3 CPT: 33210
== END | disposition home or self-care (01) ==
LOC: LABSPEC 09:43
PROVIDERS: PCP Family Medicine; Referring Provider Surgery; Visit Provider Surgery
DX: N60.31 Fibrosclerosis of right breast (principal); N60.01 Solitary cyst of right breast
CPT/HCPCS: 88305

== ENCOUNTER → 2020-11-27 10:30 | Outpatient (CLI) | payer MEDICAID, SELFPAY ==
[2020-08-13 08:38] VITALS: BMI 31.4
[2020-11-29 03:06] LABS: Chlamydia By Nucleic Acid AMP Negative (Negative)
[2020-11-29 07:59] LABS: Gonococcus By Nucleic Acid AMP Negative (Negative)
[2020-12-01 17:33] LABS: HPV Reflexed? NOT INDICATED
== END ==
PROVIDERS: PCP Family Medicine; Visit Provider Student in an Organized Health Care Education/Training Program
DX: E22.1 Hyperprolactinemia (principal); Z12.4 Encounter for screening for malignant neoplasm of cervix; Z11.3 Encounter for screening for infections with a predominantly sexual mode of transmission
CPT/HCPCS: 36415; 84146; 87491; 87591; 88175; G0145

== ENCOUNTER → 2021-01-26 08:53 | Outpatient (CLI) | payer MEDICAID, SELFPAY ==
[2020-08-13 08:38] VITALS: BMI 31.4
--- NOTE | 2021-01-26 08:56 | BI_ITS ---
MAMMOGRAPHY - UNILATERAL DIAGNOSTIC: RIGHT BREAST REASON FOR EXAM: Female, 50 years old. Six-month follow-up examination following right breast biopsy. PERTINENT HISTORY: Non-contributory. TECHNIQUE: Digital unilateral breast amrik (3D mammographic acquisition) in the CC and MLO projections. 2-D mediolateral oblique (MLO) and craniocaudad (CC) views of both breasts were obtained. CAD: Full Field Digital Mammography with Computer Added Detection was performed. COMPARISON: Comparison is made with prior study dated 08/05/2020 and 05/31/2018. FINDINGS: Breast Composition: The breasts are heterogeneously dense, which may obscure small masses. There are no dominant masses or suspicious calcifications. A tissue clip marker is seen in the retroareolar region of the right breast. No other significant abnormalities are identified. There has been no significant change since the prior study. BI/DIAG MAMM W/CAD, UNILAT IMPRESSION: Stable unilateral diagnostic mammogram. One year follow-up mammogram recommended. (A) ASSESSMENT CATEGORY: BIRADS Category 2: Benign. A letter regarding these results will be sent to the patient by the facility within 30 days. Approximately 10% of breast cancers are not detected by mammography. A normal mammogram should not delay biopsy of a clinically suspicious abnormality. Electronically Signed: Mike León MD at 14:37 EDT , Service support ,
--- NOTE | 2021-01-26 08:56 | US_ITS ---
STUDY: ULTRASOUND BREAST - RIGHT REASON FOR EXAM: Female, 50 years old. Six-month follow-up examination following right breast biopsy. TECHNIQUE: Axial and longitudinal images of the RIGHT breast were performed with a high resolution ultrasound transducer. # OF IMAGES: 19 COMPARISON: Comparison is made with prior sonogram of the right breast dated 08/05/2020 and prior mammogram done earlier in the day. FINDINGS: RIGHT Breast: Mildly dilated retroareolar ductal dilatation. The previously seen nodular density is not present at this time. US/Breast Limited Unilateral IMPRESSION: Residual retroareolar ductal dilatation. No intraluminal filling defect is seen at this time. ASSESSMENT CATEGORY: BIRADS Category 2: Benign. A letter regarding these results will be sent to the patient by the facility within 30 days. Electronically Signed: Mike León MD at 11:29 EDT , Service support ,
== END ==
PROVIDERS: PCP Family Medicine; Referring Provider Student in an Organized Health Care Education/Training Program; Visit Provider Student in an Organized Health Care Education/Training Program
DX: N63.41 Unspecified lump in right breast, subareolar (principal)
CPT/HCPCS: 76642; 77061; 77065; G0279

== ENCOUNTER 2021-10-12 13:30 | Outpatient (RCR) | payer MEDICAID, SELFPAY | END 2021-10-13 23:59 | LOC: NS 13:30 | PROVIDERS: PCP Family Medicine; Visit Provider Student in an Organized Health Care Education/Training Program | DX: E66.9 Obesity, unspecified (principal); Z68.30 Body mass index [BMI] 30.0-30.9, adult; Z71.3 Dietary counseling and surveillance | CPT/HCPCS: 97802; 97803 ==

== ENCOUNTER 2021-10-27 16:28 | Outpatient (RCR) | payer MEDICAID, SELFPAY | END 2021-11-13 23:59 | LOC: NS 16:28 | PROVIDERS: PCP Family Medicine; Visit Provider Student in an Organized Health Care Education/Training Program | DX: E66.9 Obesity, unspecified (principal); Z68.30 Body mass index [BMI] 30.0-30.9, adult; Z71.3 Dietary counseling and surveillance | CPT/HCPCS: 97803 ==

== ENCOUNTER 2022-07-08 09:14 | Emergency (ER) | payer MEDICAID, SELFPAY ==
[2022-07-08 09:16] VITALS: BP 118/74; PULSE 64; RESP 17; TEMP 36.6; O2SAT 97; BMI 32.5
--- NOTE | 2022-07-08 09:34 | EX.ED.DYSGE1 ---
HPI History of Present Illness Chief Complaint: Cough Narrative Narrative: 52-year-old female with a chronic cough presenting with what she is describing as dillan sputum which started today. Patient states she seen Dr. Huber in the past and was told she does not have exactly an ulcer but has some irritation to the stomach lining. She is on Nexium and this has not changed. She states there is nothing new about the cough. She is not had fever or chills. She is not on any anticoagulation. She states she spoke with Dr. Huber's office and they told her to come to the emergency room for tests. She states he does have a history of asthma but has been doing very well with this and has been taking her medications. [facility] Medical History (Updated 07/08/22 @ 09:41 by Citlalli Iverson) Anxiety and depression Asthma Fatigue GERD (gastroesophageal reflux disease) Home Medications citalopram 10 mg tablet 40 mg PO QHS depression 08/24/14 [History Last Taken 03/21/19] montelukast 10 mg tablet 10 mg PO QHS allergies 03/22/19 [History Last Taken 07/07/22] risperidone 0.5 mg tablet 0.5 mg PO QHS sleep 03/22/19 [History Last Taken 07/07/22] budesonide-formoterol HFA 160 mcg-4.5 mcg/actuation aerosol inhaler (Symbicort) 2 puff inhalation BID 07/08/22 [History Last Taken Unknown] lamotrigine 100 mg tablet 100 mg PO DAILY 07/08/22 [History Last Taken Unknown] lisinopril 10 mg tablet 10 mg PO DAILY 07/08/22 [History Last Taken Unknown] Allergy/AdvReac Type Severity Reaction Status Date / Time No Known Allergies Allergy Verified 07/08/22 09:15 Family History Mother Heart disease Myocardial infarction Grandmother Asthma Surgical History History of colonoscopy (~2018) No pertinent past surgical history Social History Smoking Status: Current some day smoker tobacco type: cigarettes ROS ROS ED Constitutional Constitutional ED: Denies chills or fever(s) Eyes Eyes: Denies change in vision ENT ENT ED: Denies rhinorrhea or sore throat Cardiovascular Cardiovascular: Denies chest pain or palpitations Respiratory/Chest Respiratory/Chest: Reports cough and other Details: Dillan sputum Gastrointestinal Gastrointestinal: Denies abdominal pain Genitourinary Genitourinary ED: Denies dysuria or hematuria Musculoskeletal Musculoskeletal: Denies arthralgias or back pain Integumentary Denies abscess Neurologic Neurologic: Denies headache(s) or paresthesias EXAM Physical Exam Const Vital Signs: 07/08/22 09:16 07/08/22 09:42 Temperature 97.8 F Temperature Source Temporal Pulse Rate 64 Respiratory Rate 17 Respiratory Effort Normal Respiratory Depth Normal Respiratory Pattern Normal Blood Pressure 118/74 Blood Pressure Mean 88 Pulse Ox 97 Oxygen Delivery Method Room Air MDM MDM MDM Narrative Medical decision making narrative: 52-year-old female presenting with history of GERD and states he has had a slight cough and noticed that she had some dillan sputum. She spoke with Dr. Huber's office who referred her to the ED. Her vital signs are stable and she is afebrile. Her lungs are clear to auscultation. It does sound like she has some symptoms of GERD however her cough has not changed over time. She is not on any blood thinners. She is not having any chest pain or shortness of breath. I did check a CBC and she has no leukocytosis. Her hemoglobin is stable at 12.9. I obtained a chest x-ray which on my interpretation is no acute cardiopulmonary process. Radiologist agree. I recommended to her that she continue to take her medication. I feel she is stable for outpatient follow-up. Impression: 1. GERD 2. Chronic cough 3. Hemoptysis Lab Data Attestation: I reviewed the patient's lab results. Labs: Laboratory Results - last 24 hr 07/08/22 10:05 WBC 6.4 RBC 4.33 Hgb 12.9 Hct 39.1 MCV 90.3 MCH 29.8 MCHC 33.0 RDW Std Deviation 50.5 H RDW Coeff of Gloria 15.9 H Plt Count 191 MPV 10.3 Immature Gran % (Auto) 0.500 Neut % (Auto) 69.7 Lymph % (Auto) 18.9 L [place] % (Auto) 8.0 Eos % (Auto) 2.7 Baso % (Auto) 0.2 Absolute Neuts (auto) 4.5 Absolute Lymphs (auto) 1.21 Nucleated RBC % 0 Radiography Diagnostic Testing: Clinical Impression(s) from Imaging Studies Chest X-Ray 07/08/22 09:52 IMPRESSION: Normal x-ray examination of the chest. Electronically Signed: Mike León MD at 10:03 EDT , Discharge Plan Triage Chief Complaint: Cough ED Provider: Carrillo Fairchild Dx/Rx/DC Orders Instructions: ED GERD (Adult), ED Hemoptysis Prescriptions: No Action citalopram 10 MG tablet 40 mg PO QHS montelukast 10 MG tablet 10 mg PO QHS risperidone 0.5 MG tablet 0.5 mg PO QHS lisinopril 10 mg tablet 10 mg PO DAILY lamotrigine 100 mg tablet 100 mg PO DAILY budesonide-formoterol [Symbicort] 160-4.5 mcg/actuation HFA aerosol inhaler 2 puff INHALATION BID Primary Care Provider: Gus Yu Referrals: Stephen Huber MD [Med Staff - Active Staff] - 3-5 Days Gus Yu MD [Primary Care Provider] - Disposition Disposition: Home, Self Care
--- NOTE | 2022-07-08 09:52 | RAD_ITS ---
STUDY: X-RAY CHEST REASON FOR EXAM: Female, 52 years old. Cough TECHNIQUE: Single AP portable view of the chest. COMPARISON: Comparison is made with prior study dated 11/14/2019. FINDINGS: The lungs are clear and expanded. There is no demonstrated pleural abnormality. Normal size heart. Normal mediastinum and lionel. Normal visualized pulmonary arteries. Normal visualized aortic arch and descending thoracic aorta. Normal visualized thoracic spine. Normal visualized ribs, clavicles, and shoulders. There is no demonstrated abnormality of the visualized soft tissue structures of the upper abdomen. RAD/Chest 1 View (Portable) IMPRESSION: Normal x-ray examination of the chest. Electronically Signed: Mike León MD at 10:03 EDT ,
[2022-07-08 10:18] LABS: Absolute Lymphocyte Count 1.21 X10^3/uL (0.83-4.51); Absolute Neutrophil Count 4.5 X10^3/uL (2.0-7.7); Basophil# 0.01 X10^3/uL; Basophil% 0.2 % (0-1); Eosinophil# 0.17 X10^3/uL; Eosinophils% 2.7 % (0-5); Hematocrit 39.1 % (37-47); Hemoglobin 12.9 g/dL (12.0-15.0); Lymphocyte # 1.21 X10^3/ul (0.83-4.51); Lymphocyte % 18.9 % (19-41); Mean Corpuscular Hgb 29.8 pg (27.0-32.0); Mean Corpuscular Volume 90.3 fL (81-99); Mean Platelet Vol. 10.3 fl (6.2-12.0); Monocyte# 0.51 X10^3/uL; NRBC Flagged by Analyzer 0 % (0-5); Neutrophil # 4.48 X10^3/uL (2.7-7.7); Neutrophil % 69.7 % (47-70); Platelet Count 191 K/mm3 (150-450); RBC Distribution Width CV 15.9 % (11.6-14.6); RBC Distribution Width SD 50.5 fl (35.1-43.9); Red Blood Count 4.33 M/mm3 (4.2-5.4); White Blood Count 6.4 K/mm3 (4.4-11.0)
[2022-07-08 11:51] VITALS: BP 133/75; PULSE 62; PULSE 74; RESP 15; RESP 16; O2SAT 96; O2SAT 98
== END 2022-07-08 12:03 | disposition home or self-care (01) ==
PROVIDERS: Emergency Provider Student in an Organized Health Care Education/Training Program; PCP Family Medicine; Visit Provider Student in an Organized Health Care Education/Training Program
DX: R05.3 Chronic cough (principal); F41.9 Anxiety disorder, unspecified; F32.A Depression, unspecified; J45.909 Unspecified asthma, uncomplicated; K21.9 Gastro-esophageal reflux disease without esophagitis; Z79.899 Other long term (current) drug therapy; F17.210 Nicotine dependence, cigarettes, uncomplicated; R04.2 Hemoptysis
CPT/HCPCS: 36415; 71045; 85025; 99281

== ENCOUNTER 2022-10-24 11:26 | Emergency (ER) | payer MEDICAID, SELFPAY ==
[2022-10-24 11:26] VITALS: BP 125/79; PULSE 76; RESP 16; TEMP 36.4; O2SAT 99; BMI 28.9
--- NOTE | 2022-10-24 11:40 | RAD_ITS ---
STUDY: X-RAY - RIGHT HAND, ATTENTION SECOND FINGER REASON FOR EXAM: Female, 52 years old. cat bite PAIN, SWELLING, REDNESS TECHNIQUE: 3 view(s) of the finger were obtained. COMPARISON: None. FINDINGS: Mild to moderate soft tissue swelling is present throughout the second digit. No subcutaneous air is present or evidence of osteomyelitis. No visualized occult fracture. Normal metacarpal head. Normal metacarpophalangeal joint. Normal proximal phalanx. Normal middle phalanx. Normal distal phalanx. Normal proximal interphalangeal joint. Normal distal interphalangeal joint. RAD/Finger(s) Min 2 Views IMPRESSION: 1. Mild to moderate soft tissue swelling is present throughout the second digit. No subcutaneous air is present or evidence of osteomyelitis. No visualized occult fracture. Electronically Signed: Devin Butt MD at 12:52 EST ,
--- NOTE | 2022-10-24 12:03 | EDS_ITS ---
HPI History of Present Illness Chief Complaint: Bite Informant: patient Narrative Narrative: This patient presents with a cat bite to her right index finger. This occurred Tuesday. She was seen in urgent care Tuesday morning. They wrote for what she describes as penicillin. But the pharmacy did not yet have it available and so she did not get it filled. She came in today to have it checked. She states it hurts at the tip of the right finger but not anywhere else. She states she can still move her hand open and close it. She has no nausea vomiting fevers chills. She has no history of diabetes. She states there is a small blister on the back of the she has some chronic deformity of that right finger at the tip due to a laceration and scarring from when she was much younger. She states the volar surface does not hurt at all. [facility] Medical History Anxiety and depression Asthma Asthma exacerbation Fatigue GERD (gastroesophageal reflux disease) Home Medications citalopram 10 mg tablet 40 mg PO QHS depression 08/24/14 [History Last Taken 03/21/19] montelukast 10 mg tablet 10 mg PO QHS allergies 03/22/19 [History Last Taken 07/07/22] risperidone 0.5 mg tablet 0.5 mg PO QHS sleep 03/22/19 [History Last Taken 07/07/22] budesonide-formoterol HFA 160 mcg-4.5 mcg/actuation aerosol inhaler (Symbicort) 2 puff inhalation BID 07/08/22 [History Last Taken Unknown] lamotrigine 100 mg tablet 100 mg PO DAILY 07/08/22 [History Last Taken Unknown] lisinopril 10 mg tablet 10 mg PO DAILY 07/08/22 [History Last Taken Unknown] amoxicillin 875 mg-potassium clavulanate 125 mg tablet 1 tab PO BID #20 tabs 10/24/22 [Rx Last Taken Unknown] Allergy/AdvReac Type Severity Reaction Status Date / Time No Known Allergies Allergy Verified 10/24/22 11:29 Family History Mother Heart disease Myocardial infarction Grandmother Asthma Surgical History History of colonoscopy (~2018) No pertinent past surgical history Social History Smoking Status: Current some day smoker tobacco type: cigarettes ROS ROS ED Constitutional Constitutional ED: Denies chills, fever(s) or subjective Gastrointestinal Gastrointestinal: Denies abdominal pain, nausea or vomiting Musculoskeletal Musculoskeletal: Reports other Details: Discomfort at the tip of the right index finger but nowhere else. No myalgias. ; Denies myalgias Integumentary Reports other Details: Bite alanis. Neurologic Neurologic: Denies paresthesias or weakness Endocrine Endocrinology: Denies polydipsia or polyuria Hematologic/Lymphatic Hematologic/Lymphatic: Denies lymphadenopathy Allergic/Immunologic Allergic/Immunologic ED: Denies urticaria EXAM Physical Exam Const Vital Signs: 10/24/22 11:26 Temperature 97.6 F L Temperature Source Temporal Pulse Rate 76 Respiratory Rate 16 Blood Pressure 125/79 H Blood Pressure Mean 94 Pulse Ox 99 Positive well nourished and well developed Constitutional Narrative: Patient walked back to the room. She looks nontoxic. She is pleasant. General Appearance ED: well developed and NAD HEENT atraumatic Resp normal respiratory effort Cardio regular rhythm Rate: Negative for tachycardic GI normal to inspection, nondistended, normoactive bowel sounds and non-tender Extremity Extremity Narrative: Patient does not have any of Knavel's signs. She does have a prior scar on the tuft. At first I thought this was swollen but she states it does not hurt when I squeeze the tuft. That looks normal to her. There is no indication of a felon. She does have a puncture alanis on a little bit on the volar lateral aspect but mostly on the dorsal lateral aspect of the right index finger overlying the distal phalanx. The dorsal portion has a small blister what looks like purulent fluid. This is about 3 mm around. She has good range of motion and no tenderness along the tendon the sheath. Palm is not tender. Neuro no focal motor deficits and no sensory deficits noted Sensorium / Orientation: alert Skin Skin Narrative: See above. No proximal lymphangitic streaking. No proximal tenderness or lymph nodes. MDM MDM MDM Narrative Medical decision making narrative: Procedure: Drainage: We did choose to drain the distal small blister. The area was cleaned with alcohol. An 18-gauge needle was just used to unroofed this as it was very superficial. We got a small amount of purulence out. There is no significant drainage. I do not think it would be appropriate to incise into the finger at this time. I think this could do more damage than benefit. She tolerated this well. Had a long talk with the patient. She would like to go home. I think this is reasonable. She has not yet been on antibiotics. We will initiate antibiotics IV here. We will give her oral to go. I was not able to fill these at our pharmacy as they are not open. But we have sent them to [facility] that should be open for enough hours that she can get these filled. I explained the cat bites have high rate of infection. At this point I do not feel she needs to be admitted but she certainly has potential for admission and even future surgery. We discussed specifically all the reasons to come back or if she has any concerns. Radiography Diagnostic Testing: Three-view x-ray of the right index finger looked at by me shows some soft tissue swelling. Some of this is chronic from prior injury some may be acute. Clinically most of this is chronic. There is no subcutaneous air seen. I do not see any foreign body. No fracture. Discharge Plan Triage Chief Complaint: Bite ED Provider: Cosme Olivarez Dx/Rx/DC Orders Clinical Impression: Cat bite of right hand Instructions: ED Cat Bite Prescriptions: New amoxicillin-pot clavulanate 875-125 mg tablet 1 tab PO BID Qty: 20 0RF No Action citalopram 10 MG tablet 40 mg PO QHS montelukast 10 MG tablet 10 mg PO QHS risperidone 0.5 MG tablet 0.5 mg PO QHS lisinopril 10 mg tablet 10 mg PO DAILY lamotrigine 100 mg tablet 100 mg PO DAILY budesonide-formoterol [Symbicort] 160-4.5 mcg/actuation HFA aerosol inhaler 2 puff INHALATION BID Primary Care Provider: Gus Yu Referrals: Gus Yu MD [Primary Care Provider] - 1 Day for another exam Activity Restrictions/Additional Instructions: Return with any swelling, pain with motion of the finger, redness going up hand or arm, pain in hand or arm, fevers chills nausea or other concerns. Disposition Disposition: Home, Self Care
[2022-10-24] MEDS: Rabies Immune Globulin/PF 300 UNIT/ML, 5 ML VIAL 1390 UNIT IM (13:46)
[2022-10-24] MEDS: Rabies Vaccine,Human Diploid 2.5 UNITS Vial IM (13:55)
--- NOTE | 2022-10-24 13:59 | NURSING ---
Dr. Olivarez stated he will not being injecting vaccine around animal bite.
== END 2022-10-24 14:02 | disposition home or self-care (01) ==
PROVIDERS: Emergency Provider Emergency Medicine; PCP Family Medicine; Visit Provider Emergency Medicine
DX: S61.250A Open bite of right index finger without damage to nail, initial encounter (principal); F17.210 Nicotine dependence, cigarettes, uncomplicated; W55.01XA Bitten by cat, initial encounter; Z23 Encounter for immunization
CPT/HCPCS: 90375; 73140; 90675; 96365; 96372; 99283; J7050; A4216; J0295

== ENCOUNTER 2022-10-27 08:16 | Outpatient (CLI) | payer MEDICAID, SELFPAY ==
[2022-10-27] MEDS: Rabies Vaccine,Human Diploid 2.5 UNITS Vial IM (08:37)
[2022-10-27 08:40] VITALS: BP 125/78; PULSE 71; RESP 16; TEMP 36.3; O2SAT 100; BMI 25.0
== END 2022-10-27 08:59 | disposition home or self-care (01) ==
PROVIDERS: PCP Family Medicine; Visit Provider Emergency Medicine
DX: Z23 Encounter for immunization (principal)
CPT/HCPCS: 90675; 96372

== ENCOUNTER 2022-11-01 08:33 | Outpatient (CLI) | payer MEDICAID, SELFPAY ==
[2022-11-01 08:34] VITALS: BP 93/74; PULSE 77; RESP 16; TEMP 36.8; O2SAT 99; BMI 24.7
--- NOTE | 2022-11-01 08:35 | ED.RN ---
pt day late for ravies vac. dr dubon consulted to give and bump last injection one day later as well. pt aware last vaccine to be 11/08 now.
[2022-11-01] MEDS: Rabies Vaccine,Human Diploid 2.5 UNITS Vial IM (08:57)
== END 2022-11-01 09:05 | disposition home or self-care (01) ==
PROVIDERS: PCP Family Medicine; Visit Provider Emergency Medicine
DX: Z23 Encounter for immunization (principal)
CPT/HCPCS: 90675; 96372

== ENCOUNTER 2023-04-04 14:34 | Emergency (ER) | payer MEDICAID, SELFPAY ==
[2023-04-04 14:34] VITALS: BP 137/82; PULSE 70; RESP 16; TEMP 36.9; O2SAT 99
--- NOTE | 2023-04-04 14:42 | CT_ITS ---
EXAM: CT MAXILLOFACIAL WITHOUT INTRAVENOUS CONTRAST CLINICAL INDICATION: HEAD INJURY TECHNIQUE: Helically acquired images were obtained of the face without intravenous contrast. This CT exam was performed using one or more of the following dose reduction techniques: automated exposure control, adjustment of the mA and/or kV according to patient size, and/or use of iterative reconstruction technique. RADIATION DOSE: CTDIvol = 29.38 mGy, DLP = 540.11 mGy-cm COMPARISON: No relevant prior studies available. FINDINGS: BONES/JOINTS: Degenerative changes of the mandibular condyles. No displaced fracture. No discrete lytic or blastic abnormalities. SOFT TISSUES: Unremarkable. No focal subcutaneous swelling. No discrete fluid collections. ORBITS: Unremarkable. Both globes are unremarkable. Extraocular muscles are normal. Retrobulbar fat appears unremarkable. SINUSES: Unremarkable as visualized. Clear. MASTOID AIR CELLS: Unremarkable as visualized. Clear. DENTAL: No acute findings. No periodontal osseous erosion. CT/Sinus/Facial Bone IMPRESSION: No acute findings in the face. Electronically Signed: Randall Manning MD at 15:45 EDT ,
--- NOTE | 2023-04-04 14:42 | CT_ITS ---
STUDY: CT Spine Cervical W/O Contrast Injection 04/04/2023 3:45 PM REASON FOR EXAM: Female, 53 years old. NECK PAIN HEAD INJURY HISTORY: NECK PAIN HEAD INJURY TECHNIQUE: High resolution transaxial imaging was performed without intravenous administration of contrast material. Sagittal and coronal images were reconstructed. Individualized dose optimization techniques were used for this CT. COMPARISON: None FINDINGS: Normal craniovertebral junction. Normal anterior atlantoaxial articulation. Normal odontoid process. There is straightening of the normal cervical lordosis. Normal vertebral bodies and posterior osseous elements. C2-3: Normal endplates. Normal disc height and morphology. Normal central canal and intervertebral neuroforamina. C3-4: Normal endplates. Normal disc height and morphology. Normal central canal and intervertebral neuroforamina. C4-5: Normal endplates. Normal disc height and morphology. Normal central canal and intervertebral neuroforamina. C5-6: Loss of intervertebral disc height. There is endplate spondylosis of the vertebral body. Normal central canal and intervertebral neuroforamina. There is bilateral facet arthropathy. C6-7: Loss of intervertebral disc height. There is endplate spondylosis of the vertebral body. Normal central canal and intervertebral neuroforamina. There is bilateral facet arthropathy. C7-T1: Normal endplates. Normal disc height and morphology. Normal central canal and intervertebral neuroforamina. Normal visualized soft tissue structures. CT/Spine Cervical without Contras IMPRESSION: (NOT LISTED IN ORDER OF SIGNIFICANCE) There is altered curvature of the normal cervical lordosis. This can suggest neck strain. Multilevel degenerative changes, as described above. Electronically Signed: Randall Manning MD at 15:46 EDT ,
--- NOTE | 2023-04-04 14:42 | CT_ITS ---
EXAM: CT HEAD WITHOUT INTRAVENOUS CONTRAST CLINICAL INDICATION: HEAD INJURY TECHNIQUE: Multiple axial images were obtained of the head without intravenous contrast. This CT exam was performed using one or more of the following dose reduction techniques: automated exposure control, adjustment of the mA and/or kV according to patient size, and/or use of iterative reconstruction technique. RADIATION DOSE: CTDIvol = 44.99 mGy, DLP = 779.24 mGy-cm COMPARISON: No relevant prior studies available. FINDINGS: BRAIN AND EXTRA-AXIAL SPACES: Unremarkable. No intra- or extra-axial hemorrhage. No evidence of acute infarct. No intracranial mass or mass effect. There is preservation of the gamble/white matter interface. Posterior fossa structures are unremarkable. Ventricles are appropriate for age. No hydrocephalus. Basal cisterns are patent. 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 No discrete lytic or blastic abnormalities. SINUSES: Unremarkable as visualized. Clear. MASTOID AIR CELLS: Unremarkable. Clear. ORBITS: Visualized globes, extraocular muscles, optic nerves and retrobulbar fat appear unremarkable. CT/Brain/Head without Contrast IMPRESSION: No acute findings in the head/brain. Electronically Signed: Randall Manning MD at 15:39 EDT ,
[2023-04-04 15:11] VITALS: BP 158/78; BMI 28.0
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
[2023-04-04] MEDS: Ibuprofen 600 MG Tablet PO (15:51)
[2023-04-04 16:32] VITALS: RESP 16
== END 2023-04-04 16:34 | disposition home or self-care (01) ==
LOC: ED 15:53
PROVIDERS: Emergency Provider Emergency Medicine; PCP Family Medicine; Visit Provider Emergency Medicine
DX: S06.0X0A Concussion without loss of consciousness, initial encounter (principal); F17.210 Nicotine dependence, cigarettes, uncomplicated; J45.909 Unspecified asthma, uncomplicated; S00.83XA Contusion of other part of head, initial encounter; V86.56XA Driver of dirt bike or motor/cross bike injured in nontraffic accident, initial encounter
CPT/HCPCS: 70450; 70486; 72125; 99283

== ENCOUNTER 2023-07-31 00:12 | Emergency (ER) | payer MEDICAID, SELFPAY ==
[2023-07-31 00:15] VITALS: BP 112/101; PULSE 61; RESP 18; TEMP 36.7; O2SAT 100; BMI 30.9
[2023-07-31] MEDS: Diphth,Pertuss(Acell),Tet Vac 0.5 ML Vial IM (02:14)
[2023-07-31] MEDS: Ondansetron 4 MG/2 ML Vial IV (02:14)
[2023-07-31] MEDS: Morphine 4 MG/ML Syringe IV (02:15)
--- NOTE | 2023-07-31 03:05 | RAD_ITS ---
INDICATION: pain EXAMINATION/TECHNIQUE: X-RAY - RIGHT XR Femur Min 2 Views 5 VIEWS COMPARISON: No relevant prior comparison study available FINDINGS: SOFT TISSUES: No soft tissue swelling or gas. No radiopaque foreign body. BONES/JOINTS: No acute fracture or subluxation.. Normal alignment. Preservation of the joint space.. No sclerotic or destructive changes observed. RAD/Femur Min 2 Views IMPRESSION: Negative. Electronically Signed: Cj Mendoza MD at 4:00 EDT ,
--- NOTE | 2023-07-31 03:05 | RAD_ITS ---
INDICATION: pain EXAMINATION/TECHNIQUE: X-RAY - RIGHT XR Foot Min 3 Views 3 VIEWS COMPARISON: No relevant prior comparison study available FINDINGS: SOFT TISSUES: No soft tissue swelling or gas. No radiopaque foreign body. BONES/JOINTS: No acute fracture or subluxation.. Normal alignment. Preservation of the joint space.. No sclerotic or destructive changes observed. RAD/Foot min 3 Views IMPRESSION: Negative. Electronically Signed: Cj Mendoza MD at 4:02 EDT ,
--- NOTE | 2023-07-31 03:05 | RAD_ITS ---
INDICATION: pain EXAMINATION/TECHNIQUE: X-RAY - LEFT XR Tibia/Fibula 1 View 2 VIEWS COMPARISON: No relevant prior comparison study available FINDINGS: SOFT TISSUES: No soft tissue swelling or gas. No radiopaque foreign body. BONES/JOINTS: No acute fracture or subluxation.. Normal alignment. Preservation of the joint space.. No sclerotic or destructive changes observed. RAD/Tibia & Fibula 2 Views IMPRESSION: Negative. Electronically Signed: Cj Mendoza MD at 4:05 EDT ,
--- NOTE | 2023-07-31 03:05 | RAD_ITS ---
INDICATION: PAIN EXAMINATION/TECHNIQUE: X-RAY - RIGHT XR Tibia/Fibula 2 Views 2 VIEWS COMPARISON: No relevant prior comparison study available FINDINGS: SOFT TISSUES: No soft tissue swelling or gas. No radiopaque foreign body. BONES/JOINTS: No acute fracture or subluxation.. Normal alignment. Preservation of the joint space.. No sclerotic or destructive changes observed. RAD/Tibia & Fibula 2 Views IMPRESSION: Negative. Electronically Signed: Cj Mendoza MD at 4:04 EDT ,
--- NOTE | 2023-07-31 03:05 | RAD_ITS ---
INDICATION: pain EXAMINATION/TECHNIQUE: X-RAY - LEFT XR Ankle Min 3 Views 3 VIEWS COMPARISON: No relevant prior comparison study available FINDINGS: SOFT TISSUES: No soft tissue swelling or gas. No radiopaque foreign body. BONES/JOINTS: No acute fracture or subluxation.. Normal alignment. Preservation of the joint space.. No sclerotic or destructive changes observed. RAD/Ankle min 3 Views IMPRESSION: Negative. Electronically Signed: Cj Mendoza MD at 3:36 EDT ,
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
[2023-07-31 04:53] VITALS: BP 98/59; RESP 16
== END 2023-07-31 04:55 | disposition home or self-care (01) ==
PROVIDERS: Emergency Provider Emergency Medicine; PCP Family Medicine; Visit Provider Emergency Medicine
DX: S70.311A Abrasion, right thigh, initial encounter (principal); F17.210 Nicotine dependence, cigarettes, uncomplicated; W18.09XA Striking against other object with subsequent fall, initial encounter; Y92.810 Car as the place of occurrence of the external cause; F41.8 Other specified anxiety disorders; J45.909 Unspecified asthma, uncomplicated; Z79.899 Other long term (current) drug therapy; Z79.51 Long term (current) use of inhaled steroids; S70.312A Abrasion, left thigh, initial encounter; S80.812A Abrasion, left lower leg, initial encounter; S90.812A Abrasion, left foot, initial encounter; S80.11XA Contusion of right lower leg, initial encounter
CPT/HCPCS: 73552; 73590; 73610; 73630; 90715; 96374; 96375; 99284; A4216; J2405

== ENCOUNTER 2023-08-08 13:38 | Emergency (ER) | payer MEDICAID, SELFPAY ==
[2023-08-08 13:39] VITALS: BP 100/66; PULSE 79; RESP 16; TEMP 36.4; O2SAT 100; BMI 29.6
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
[2023-08-08 15:38] VITALS: BP 134/78; PULSE 64; RESP 14; O2SAT 98
[2023-08-08 16:00] VITALS: BP 142/79; PULSE 67; RESP 14; TEMP 36.4; O2SAT 100
== END 2023-08-08 16:22 | disposition home or self-care (01) ==
PROVIDERS: Emergency Provider Emergency Medicine; PCP Family Medicine; Visit Provider Emergency Medicine
DX: S80.12XA Contusion of left lower leg, initial encounter (principal); S80.11XA Contusion of right lower leg, initial encounter; X58.XXXA Exposure to other specified factors, initial encounter; Y92.810 Car as the place of occurrence of the external cause; F17.210 Nicotine dependence, cigarettes, uncomplicated; F41.8 Other specified anxiety disorders; Z79.899 Other long term (current) drug therapy; J45.909 Unspecified asthma, uncomplicated; Z79.51 Long term (current) use of inhaled steroids
CPT/HCPCS: 73700; 99282

== ENCOUNTER 2024-02-29 13:30 | Outpatient (RCR) | payer MEDICAID, SELFPAY ==
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
== END 2024-02-29 19:00 | disposition home or self-care (01) ==
LOC: PT 13:30
PROVIDERS: PCP Family Medicine; Referring Provider Orthopaedic Surgery Orthopaedic Surgery of the Spine; Visit Provider Orthopaedic Surgery Orthopaedic Surgery of the Spine
DX: M54.16 Radiculopathy, lumbar region (principal)
CPT/HCPCS: 97113; 97162; 97164

== ENCOUNTER 2025-02-15 08:08 | Day surgery (SDC) | payer MEDICAID, SELFPAY ==
--- NOTE | 2025-02-14 13:33 | HP.PCM.OB_ITS ---
History and Physical Date of Admission: 02/15/25 Expand All Collapse All Pre-Op History and Physical HPI: The patient is a 54 year old female presenting for discussion regarding PMB and Endometrial thickening and Likely endometrial polyp on EMB pathology - still having some bleeding. pre-operative visit. She is scheduled for Hysteroscopy D&C, polypectomy for EM polyp, PMB, Thickened endometrium on 02/15/25. Procedure discussed along with risks, benefits and complications. Other alternatives discussed for management. Consent form signed? Yes. PAST MEDICAL HISTORY PAST MEDICAL HISTORY Diagnosis Date ? Alcohol abuse 12/20/2022 ? Anxiety 10/01/2014 ? Asthma, mild persistent 12/13/2014 ? Depression 10/01/2014 ? Dyshidrosis 02/24/2006 ? Ex-smoker 10/01/2014 Smoked 1/2-1 PPD for 15-20 yrs, ? Foraminal stenosis of lumbosacral region 01/13/2024 ? GERD (gastroesophageal reflux disease) 12/13/2014 ? Hypertension, essential 02/25/2022 ? Iron deficiency anemia 05/25/2018 ? Leg weakness, bilateral 08/23/2023 ? OTHER ATOPIC DERMATITIS 02/24/2006 ? Over weight 03/27/2018 ? PRURITIC DISORDER NOS 09/05/2006 ? Radicular leg pain 12/27/2023 ? Tubular adenoma of colon 03/22/2022 ? Unspecified hemorrhoids without mention of complication 02/01/2007 ? Xerosis//SEBACEOUS GLAND DIS NEC 02/24/2006 PAST SURGICAL HISTORY PAST SURGICAL HISTORY Procedure Laterality Date ? COLONOSCOPY 04/15/2022 repeat in 10 years ? EGD W/O [facility] SPEC VARICIES INJ 04/15/2022 ? ESOPHAGEAL MANOMETRY 08/24/2022 Dr. Garcia CURRENT MEDICATIONS Current Outpatient Medications Medication Sig Dispense Refill ? gabapentin (NEURONTIN) 100 mg capsule Take 1 capsule by mouth three times a day for 180 days. 270 capsule 1 ? SYMBICORT 160-4.5 mcg/actuation inhaler INHALE 2 PUFFS BY MOUTH AND INTO THE LUNGS TWICE A DAY 10.2 g 11 ? miSOPROStol (CYTOTEC) 200 mcg tablet Use 2 tablets vaginally as directed. The night before the procedure and the morning of the procedure. 4 tablet 0 ? montelukast (SINGULAIR) 10 mg tablet Take 1 tablet by mouth once daily. 90 tablet 3 ? pantoprazole DR (PROTONIX) 40 mg tablet TAKE 1 TABLET BY MOUTH DAILY BEFORE BREAKFAST 30 tablet 3 ? lisinopril (ZESTRIL) 20 mg tablet Take 1 tablet by mouth once daily. 30 tablet 5 ? lamoTRIgine (LAMICTAL) 200 mg tablet ? risperiDONE (RISPERDAL) 2 mg tablet ? traZODone (DESYREL) 100 mg tablet ? albuterol HFA (PROVENTIL HFA, VENTOLIN HFA) 90 mcg/actuation inhaler INHALE 2 PUFFS BY MOUTH EVERY SIX HOURS NEEDED FOR WHEEZING / SHORTNESS OF BREATH 18 g 11 ? citalopram (CELEXA) 40 mg tablet Take 1 tablet by mouth once daily. [facility] ? albuterol (PROVENTIL) 2.5 mg /3 mL (0.083 %) nebulizer solution Use 3 mL via nebulizer every 6 hours as needed for Wheezing/Shortness of Breath. 1 vial contains 3 ml. 100 Vial 1 No current facility-administered medications for this visit. ALLERGIES: Bleach (Sodium Hypochlorite) PERSONAL HISTORY: SOCIAL HISTORY Social History Tobacco Use ? Smoking status: Former Current packs/day: 0.00 Average packs/day: 0.5 packs/day for 10.0 years (5.0 ttl pk-yrs) Types: Cigarettes Start date: 11/14/2012 Quit date: 11/14/2022 Years since quittin.2 ? Smokeless tobacco: Never ? Tobacco comments: couple cigarettes twice-three times per week Vaping Use ? Vaping status: current everyday user Substance Use Topics ? Alcohol use: Not Currently Comment: social ? Drug use: Not Currently Types: Marijuana Comment: once per week FAMILY HISTORY: FAMILY HISTORY FAMILY HISTORY Problem Relation Age of Onset ? None Mother ? None Father ? Asthma Maternal Grandmother ? Asthma Maternal Grandfather ? Colon Cancer No Family History REVIEW OF SYMPTOMS: negative except as noted above PHYSICAL EXAMINATION: VITALS: Blood pressure 104/62, height 154.9 cm (5' 1), weight 58.1 kg (128 lb), last menstrual period 12/01/2024. GENERAL: The patient is well nourished, well hydrated in no acute distress. , The patient is oriented to time, place, and person. NECK: full range of motion LUNGS: Clear to auscultation bilaterally. no wheezes, rhonchi or rales HEART: Regular rate and rhythm, Normal heart sounds, and No murmurs or gallops IMPRESSION: 54yo with PMB, EM polyp, endometrial thickening PLAN: hysteroscopy, D&C, polypectomy w/ symphion Pt has been counseled on risks/benefits and alternatives of surgery including but not limited to anesthesia, bleeding, infection, uterine perforation with subsequent injury to pelvic structures including bowel, bladder, ureters and vessels. Pt wishes to proceed with surgery at this time. Pre and post instructions I have reviewed and updated past medical and surgical history, medications and allergies Trinidad Perez MD
[2025-02-15] VITALS (7 sets, daily range): BP systolic 113–142; BP diastolic 63–83; PULSE 57–70; RESP 16; TEMP 36.4–36.6; O2SAT 99–100; BMI 23.3
[2025-02-15 08:33] LABS: Internal QC Validated? YES +Cl - CLEAR BKGD; Pregnancy, Urine Negative Negative
--- NOTE | 2025-02-15 09:23 | PRE.ANES_ITS ---
ASA Classification* ASA Classification ASA Classification: 2 Assessment & Plan Anesthesia* Anesthesia Assessment Anesthesia Assessment: Discussed sedation and/or anesthesia options, risks, benefits, and alternatives with patient/parents/legal guardian/POA. Questions invited. The patient/parents/legal guardian/POA seems to understand and agrees to proceed with anesthesia plan. Reviewed the physical assessment, medical history, allergy history and patient home medications list prior to surgery/procedure/anesthetic and documented any changes. Performed airway and anesthesia risk assessments. Anesthesia Type Anesthesia Type: MAC History Source History Obtained from:: Patient and Chart Anesthesia Focused Assessment* Temperature: 97.6 F Pulse Rate: 57 Blood Pressure: 113/63 Respiratory Rate: 16 Pulse Ox: 99 Oxygen Delivery Method: Room Air Airway Assessment Mouth opens: >3 cm Mallampati Score: IV Teeth Condition: Dentures (Patient has upper dentures.) and Missing (Patient has several missing teeth on the lower jaw. Rest are tight.) Neck Range of motion (ROM): Limited ROM (Slight decrease in extension) Focused Labs Anesthesia Preop lab: CBC WBC 6.4 K/mm3 (4.4-11.0) 07/08/22 10:05 07/08/22 RBC 4.33 M/mm3 (4.2-5.4) 07/08/22 10:05 07/08/22 Hgb 12.9 g/dL (12.0-15.0) 07/08/22 10:05 07/08/22 Hct 39.1 % (37-47) 07/08/22 10:05 07/08/22 Plt Count 191 K/mm3 (150-450) 07/08/22 10:05 07/08/22 CHEMISTRY Potassium 3.4 mmol/L (3.5-5.1) L 03/22/19 09:59 03/22/19 Sodium 140 mmol/L (136-145) 03/22/19 09:59 03/22/19 BUN 8 mg/dL (7-18) 03/22/19 09:59 03/22/19 Creatinine 0.84 mg/dL (0.55-1.02) 03/22/19 09:59 03/22/19 Glucose 117 mg/dL (74-106) H 03/22/19 09:59 03/22/19 TSH 1.05 uIU/mL (0.358-3.74) 07/31/20 11:16 COAG Urine Test Negative Negative 02/15/25 08:22 02/15/25 Pre-Assessment Diagnosis/Proposed Procedure Planned Operative Procedure(s): HYSTEROSCOPY D&C POLYPECTOMY Anesthesia History 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 When Was Last Pacemaker Check QUESTION #4 FULL TEXT: You/Your Family Experience fever (hyperthermia) with Anesthesia Last Oral Intake Last Oral intake: Last Oral Intake NPO since 00:00 02/15/25 08:41 Meds taken in AM with sips of Yes 02/15/25 08:41 water? 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 Female Yes 02/12/25 14:28 HX of Motion Sickness No 02/12/25 14:28 HX of N/V After Surgery No 02/12/25 14:28 Non-Smoker No 02/12/25 14:28 Duration of Surgery greater No 02/12/25 14:28 than 60 minutes Number of Risk Factors 1 02/12/25 14:28 PONV Score Low Risk 02/12/25 14:28 Height & Weight Height & Weight: Anesthesia: Height & Weight Height 5 ft 1 in 02/15/25 08:41 Weight: 56 kg 02/15/25 08:41 Body Mass Index (BMI) 23.3 02/15/25 08:41 Respiratory Assessment Respiratory Assessment - pure pak machine operator: Respiratory Tract Infection Hx - pure pak machine operator Hx Respiratory Tract Infection No 02/12/25 14:28 STOP Sleep Apnea STOP Sleep Apnea - pure pak machine operator: STOP Sleep Apnea - pure pak machine operator Hx Hypertension Yes: CONTROLLED WITH MED 02/12/25 14:28 Hx Sleep Apnea No 02/12/25 14:28 CPAP BIPAP Do you snore loudly (louder No 02/12/25 14:28 than talking or can be heard Do you often feel tired/ No 02/12/25 14:28 fatigued/ sleepy during daytime? Has anyone observed you stop No 02/12/25 14:28 breathing during sleep? STOP Results Negative 02/12/25 14:28 QUESTION #5 FULL TEXT : Do you snore loudly (louder than talking or can be heard through closed doors)? 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 Specify any problems Hx of Preganancy in last 3 No 02/12/25 14:28 Months Nurse Filling Out Transfusion DSCHRIBER 02/12/25 14:28 & Questions: Date: 02/12/25 02/12/25 14:28 Time: 14:29 02/12/25 14:28 Patient unable to answer at this time (ie. 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: /Reproductive Hx- pure pak machine operator Hx Now No 02/12/25 14:28 Gestational Age (in weeks): EDC: Hx Hx Para Hx Section SAB No 02/12/25 14:28 PFSH Medical History Wears glasses Wears dentures Low iron Easy bruising Migraine headache Back pain Dietary restriction Vapes nicotine containing substance Shortness of breath on exertion Leg cramps History of pain when walking Hypertension GERD (gastroesophageal reflux disease) Fatigue Anxiety and depression Asthma Home Medications ?Medication ?Instructions ?Recorded ?Last Taken ?Type risperidone 0.5 mg tablet 0.5 mg PO QHS sleep 03/22/19 07/07/22 History budesonide-formoterol HFA 160 2 puff inhalation BID Unknown History mcg-4.5 mcg/actuation aerosol inhaler (Symbicort) albuterol sulfate 2.5 mg/3 mL 2.5 mg inhalation Q6H DC N 01/19/24 Unknown History (0.083 %) solution for nebulization shortness of breat h or wheezing albuterol sulfate 90 mcg/actuation 1 inh inhalation Q4 H PRN shortness 01/19/24 Unknown History aerosol inhaler of breath or wheezing lansoprazole 30 mg capsule,delayed 30 mg PO DAILY 06/06 Unknown History release montelukast 10 mg tablet 20 mg PO QHS allergies 01/1802/15/25 History citalopram 40 mg tablet 40 mg PO QHS 02/12/25 History gabapentin 100 mg capsule 100 mg PO TID 02/12/25 Unkno wn History lamotrigine 200 mg tablet 200 mg PO DAILY 02/12/25 Unk nown History lisinopril 20 mg tablet 20 mg PO DAILY 02/12/25 Unkn own History olanzapine 5 mg-samidorphan 10 mg 1 tab PO QHS 5 02/14/25 History tablet (Lybalvi) Allergy/AdvReac Type Severity Reaction Status Date / Time Bleach (Sodium Hypochlorite) Allergy Rash Verified 02/15/25 08:28 Family History Mother Heart disease Myocardial infarction Grandmother Asthma Surgical History History of esophagogastroduodenoscopy History of colonoscopy (~2018) Social History Smoking Status: Current some day smoker tobacco type: e-cigarettes Review of Systems (Anesthesia) ROS Narrative System reviewed and no additional complaints, except as documented.
--- NOTE | 2025-02-15 09:30 | EMB_PTH ---
PATIENT: CHAUNCEY KENT LOC: [facility] [place] U#:[id number] AGE/SX: 54/F ROOM: RE02/15/[address]: Dr. Trinidad Grajeda, MDDOB: 1970 BED: DIS: 02/15/2025 SPEC #: [id number] RECD: 02/15/25 13:04 STATUS: BRITNI LUGOHaylee #: [id number] SENA: 02/15/25 09:[address]: Trinidad Grajeda DEPT: SURGICAL PATHOLOGY RECD BY: Pablito Fay ENTERED: 02/15/25 13:04 SP TYPE: ENDOM BX/C OTHR DR: Dr. Gus Yu MD Tissues: A - Endometrium, NOS Procedures: Surgery Specimen Level IV HEADER OPERATION: Hysteroscopy, D&C, polypectomy PRE-OP DIAGNOSIS: Endometrial polyp TISSUE SUBMITTED: A- Endometrial polyp and curettings MICROSCOPIC DIAGNOSIS A. Uterus, endometrium and polyp, curettings and polypectomy: - Mildly disordered proliferative endometrium - Benign endocervical mucosal polyp. MICROSCOPIC DESCRIPTION Slides are reviewed. GROSS DESCRIPTION A. Received in formalin in a container labeled with the patient's name, date of , and endometrial polyp and curettings are multiple smith-pink fragments of soft tissue admixed with a scant amount of blood mucus measuring 2.5 x 1.8 x 1.2 cm in aggregate. Submitted in toto in A1-3. [facility] 02-15-2025 CPT:09338
--- NOTE | 2025-02-15 10:18 | OP.PCM_ITS ---
Operative Report (Standard) Operative Information Date of Procedure: 02/15/25 Pre-Operative Diagnosis: PMB, Endometrial polyp, thickened endometrial polyp Post-Operative Diagnosis: same Surgery/Procedure Performed: Hysteroscopy, D&C, polypectomy with symphion take out waiter: No Type of Anesthesia: MAC RN Documented Start/Stop Times: Operation Date: 02/15/25 09:30 Case Time Into Pre-Op 02/15/25 08:13 Out of Pre-Op 02/15/25 09:41 Anesthesia Start 02/15/25 09:46 Into Room 02/15/25 09:46 Procedure Start 02/15/25 10:00 Procedure Start Time: 10:00 Procedure Stop Time: 10:12 Select all DRAINS/GRAFTS/IMPLANTS that apply: None Estimated Blood Loss: <5cc Fluids Replaced: 600 Specimen collected: Yes Description of specimen(s) removed: endometrial curettings, endometrial polyps Description of surgery: Informed consent was obtained the patient was taken the operating room she was placed in supine position. She was given anesthesia. She was then placed in the [facility] where she was prepped and draped in the normal sterile fashion. At this time the weighted speculum was placed in the posterior fornix of vagina. Single-tooth tenaculum was used to gently grasp the anterior lip the cervix. At this time the uterine cavity was sounded to approximately 8 cm. Gentle dilatation was performed once adequate dilatation of the cervix was achieved the hysteroscope using normal saline as a distention medium was placed. Tubal ostia visualized. Multiple Polyps noted. Symphion resecting device used to obtain endometrial curettings and to perform polypectomy. Tissue will be sent to pathology for evaluation. Tenaculum removed. Good hemostasis. Instrument, lap count correct x 2. Vaginal Sweep was negative. Surgical Findings: endometrial polyps Complications Complications: No Admit VTE Documentation VTE Present on Admission: Yes VTE Mechan Device Prophylaxis: SCD's Reason prophylaxis not ordered: Treatment Not Indicated
--- NOTE | 2025-02-15 10:18 | PCM.DC ---
Discharge Instructions Diet Discharge Diet: No restrictions DC O2, CPAP, BIPAP needs Home O2 Discharge instructions: No Dressing / Incision May resume sexual activity in: 1 week Dressing / Incision Call your doctor if you observe: Fever of 101 or Higher, Inability to urinate, Using more than 1 pad per hour and Uncontrolled pain Follow Up Care Please Follow Up With: Trinidad Grajeda MD When: 1-2 weeks post OP if you need an appointment please call [phone] Test Results: Test results from this visit will be discussed in further detail at your follow-up appointment, if applicable. Discharge Plan Admission Attending Provider: Trinidad Grajeda Primary Care Provider: Gus Yu Instructions Print Language: Azerbaijani Discharge Orders/Prescriptions Prescriptions: No Action albuterol sulfate 90 mcg/actuation HFA aerosol inhaler 1 inh inhalation Q4H PRN (Reason: shortness of breath or wheezing) lansoprazole 30 mg capsule,delayed release(DR/EC) 30 mg PO DAILY albuterol sulfate 2.5 mg /3 mL (0.083 %) solution for nebulization 2.5 mg inhalation Q6H PRN (Reason: shortness of breath or wheezing) risperidone 0.5 MG tablet 0.5 mg PO QHS montelukast 10 mg tablet 20 mg PO QHS budesonide-formoterol [Symbicort] 160-4.5 mcg/actuation HFA aerosol inhaler 2 puff INHALATION BID lamotrigine 200 mg tablet 200 mg PO DAILY citalopram 40 mg tablet 40 mg PO QHS lisinopril 20 mg tablet 20 mg PO DAILY gabapentin 100 mg capsule 100 mg PO TID Lybalvi 5-10 mg tablet 1 tab PO QHS Referrals / Follow Up: Gus Yu MD [Primary Care Provider] - Disposition Disposition (needs filled in before D/C Order can be placed): Home, Self Care
--- NOTE | 2025-02-15 10:29 | PCM.POST.ANE ---
Anesthesia: Postop Eval I Current Vital Signs Temperature: 97.5 F Pulse Rate: 63 Blood Pressure: 142/80 Respiratory Rate: 16 Pulse Ox: 100 Oxygen Delivery Method: Venturi Mask Oxygen Flow Rate (L/min): 6 Assessment Airway patent: Yes Spontaneous unlabored respirations: Yes Mental status: Calm nausea: No Vomiting: No Anesthesia Complication: No Fluid Hydration Crystalloid volume administer (ml): 600 Total IV fluid infused: 600 Progress Note Anesthesia document: Postop Eval 1 completed: Yes
--- NOTE | 2025-02-15 10:50 | POSTOPAN2_ITS ---
Anesthesia Postop Eval I Sum Postop Eval Completion status Anesthesia document: Postop Eval 1 completed: Yes Anesthesia Postop Eval I Summary Anesthesia Postop Eval I Summary: Anesthesia Postop Eval I: Assessment Summary Airway patent Yes 02/15/25 10:30 [email or web address] Spontaneous unlabored Yes 02/15/25 10:30 [email or web address] respirations Mental status Calm 02/15/25 10:30 [email or web address] nausea No 02/15/25 10:30 [email or web address] Vomiting No 02/15/25 10:30 [email or web address] Anesthesia Postop Eval I: Fluid Summary Crystalloid volume administer 600 02/15/25 10:30 [email or web address] (ml) Colloids volume administered ( ml) Blood Product volume administered (ml) Total IV fluid infused 600 02/15/25 10:30 [email or web address] Anesthesia Postop Eval I: Summary Notes Anesthesia Complication No 02/15/25 10:30 [email or web address] Anesthesia Complication Comment: Post-operative progress note Anesthesia: Postop Eval II Evaluation Mental status: Awake Pain Level: 2 nausea: No Vomiting: No
--- NOTE | 2025-02-15 10:50 | PCM.POSTANE2 ---
Anesthesia Postop Eval I Sum Postop Eval Completion status Anesthesia document: Postop Eval 1 completed: Yes Anesthesia Postop Eval I Summary Anesthesia Postop Eval I Summary: Anesthesia Postop Eval I: Assessment Summary Airway patent Yes 02/15/25 10:30 CASH [email or web address] [email or web address] Spontaneous unlabored Yes 02/15/25 10:30 CASH PROCESSING [email or web address] respirations Mental status Calm 02/15/25 10:30 CASH [email or web address] [email or web address] nausea No 02/15/25 10:30 CASH PROCESSING [email or web address].[email or web address] Vomiting No 02/15/25 10:30 CASH [email or web address] [email or web address] Anesthesia Postop Eval I: Fluid Summary Crystalloid volume administer 600 02/15/25 10:30 CASH [email or web address] [email or web address] (ml) Colloids volume administered ( ml) Blood Product volume administered (ml) Total IV fluid infused 600 02/15/25 10:30 CASH PROCESSING [email or web address].[email or web address] Anesthesia Postop Eval I: Summary Notes Anesthesia Complication No 02/15/25 10:30 CASH PROCESSING [email or web address] Anesthesia Complication Comment: Post-operative progress note Anesthesia: Postop Eval II Evaluation Mental status: Awake Pain Level: 2 nausea: No Vomiting: No
== END 2025-02-15 11:30 | disposition home or self-care (01) ==
LOC: SDC 08:08 → AC 09:01
PROVIDERS: Anesthesiology; PCP Family Medicine; Referring Provider Obstetrics & Gynecology; Visit Provider Obstetrics & Gynecology
PROC: 0UB98ZZ Excision of Uterus, Via Natural or Artificial Opening Endoscopic (ICD-10-PCS; CPT 58558; principal; 2025-02-15 09:15)
DX: N95.0 Postmenopausal bleeding (principal); N84.0 Polyp of corpus uteri; R93.89 Abnormal findings on diagnostic imaging of other specified body structures; I10 Essential (primary) hypertension; F17.290 Nicotine dependence, other tobacco product, uncomplicated; Z79.899 Other long term (current) drug therapy
CPT/HCPCS: 58558; 00952; 81025; 88305; A4216; J2405

== ENCOUNTER 2025-03-11 15:00 | Outpatient (RCR) | payer MEDICAID, SELFPAY ==
--- NOTE | 2024-12-10 14:05 | HP.PTEVAL_ITS ---
Patient's Visit Information Visit Information Visit Information: CHAUNCEY KENT is a 54 year old F referred to Physical Therapy by Dr. Darwin Ceballos MD with a diagnosis of BACK PAIN. Date of Evaluation: 12/10/24 Physical Therapist: Ab Brunson, PT, Cert MDT, OCS Visit Plan Frequency: 2x /Week Duration: 4 Weeks Plan: PT INTERVENTIONS AQUATIC THERAPY DLS ,POSTURAL EX'S ,LE FLEXABILITY ,BLE STRENGTHENING , AND ACTIVITY MODIFICATION Subjective Subjective: This 54 y/o female presents to physical therapy with back pain. Patient has had back pain for ~ [address] .Patient [address] DR Scott reviewed imaging and recommended pain management. Seen DR Marquez and recommended PT and gabapentin. Patient has had epidural injections which helped. Patient had MRI x- rays and MRI of the lumbar spine done recently. These show L3-S1 disc degeneration, L4-5 and L5-S1 bilateral foraminal stenosis worse on the right. Patient had PT and Aquatic therapy which helped. Most recently fell on ice 2 weeks and fell on right side. Patient located right leg and lateral hip and mild back pain symmetrical. C/O paresthesia/tingling in feet . Coughing/sneezing -.Bowel/bladder-. Patient pain affects sleeping. Patient pain affects QOL and function. Patient goals to decrease pain. SOCIAL: VOCATION: unemployed Pain Right Lower Extremity: Pain Intensity (Out of 10): 7 Pain Intensity Range: 10 Bilateral Back: Pain Intensity (Out of 10): 4 Pain Intensity Range: 10 Objective Objective: POSTURE: mild forward posture GAIT: reciprocal pattern NEURO: c/o paresthesia/tingling ,reflexes L3-4,L4-L5 ,L5-S1 2/3 PALPATION: unremarkable FLEXABILITY: hamstrings WFL LUMBAR ROM : flexion min loss ,extension severe loss pain ,side glides min/mod loss MMT: ( peak force) quads right 8.8 ,left 9.1 ,hamstrings 9.3 right ,left 9.9 ,hip flexion 6.9 right ,left 8.9 ,ankle 4/5 Special Tests L/S Slump test left side: Negative L/S Slump test right side: Negative L/S Left Straight Leg Raise: Negative L/S Right Straight Leg Raise: Negative Lumbar Standing: Flexion - Mechanical Response: No effect Lumbar Standing: Flexion - Symptoms During Testing: Increases Lumbar Standing: Flexion - Symptoms After Testing: Worse Lumbar Standing: Extension - Mechanical Response: No effect Lumbar Standing: Extension - Symptoms During Testing: Increases Lumbar Standing: Extension - Symptoms After Testing: Worse Lumbar Standing: Right Side Glides - Mechanical Response: No effect Lumbar Standing: Right Side [place] - Symptoms During Testing: No effect Lumbar Standing: Right Side [place] - Symptoms After Testing: No effect Lumbar Standing: Left Side [place] - Mechanical Response: No effect Lumbar Standing: Left Side [place] - Symptoms During Testing: No effect Lumbar Standing: Left Side [place] - Symptoms After Testing: No effect Balance/Special Test Scores Oswestry Low Back Score: 29 Goals Goal 1:: Patient to be I with Aquatic therapy program Goal Time Frame: 4-6 Weeks Goal 2:: Patient to improve lumbar ROM for function of recovery for lifting Goal Time Frame: 4-6 Weeks Goal 3:: Patient to demonstrate 50% improvement with less pain and improved function Goal Time Frame: 4-6 Weeks Goal 4:: Patient to improve peak force BLE quads/hams hip by 5-10 # to improve function Goal Time Frame: 4-6 Weeks Goal 5:: Patient to improve back oswestry score by 5 points to improve QOL and function Goal Time Frame: 4-6 Weeks Rehabilitation Potential Physical Therapy Diagnosis: This patient has lumbar pain with legs symptoms with MRI showing stenosis with pain with positioning and motion testing along with weakness in legs thus benefit from skilled PT Rehabilitation Potential: Good Anticipated Interventions Patient/Client Instruction: Educate patient on: Condition and Plan of Care For the Purpose of:: To decrease pain, To increase ROM, To improve muscle performance and motor function, To increase tolerance to activity/condition/position, To improve ability of physical actions for home/community/work/leisure, To improve health of tissue, To decrease soft tis trent restriction, To increase flexibility/ROM, To improve balance, To reduce risk of recurrence and To improve tolerance to ADL's Therapeutic Exercise to Include: Strength training, Endurance training, Balance training, Body mechanics, Postural training, Flexibilty training, In an aquatic setting and Dynamic Lumbar Stabilization For the Purpose of:: To decrease pain, To increase ROM, To improve nutrient delivery to tissue, To improve muscle performance and motor function, To increase tolerance to activity/condition/position, To improve ability of physical actions for home/community/work/leisure, To improve health of tissue, To decrease soft tissue restriction and To increase flexibility/ROM Text: Thank you for the opportunity to evaluate your patient. For Medicare and Medicare HMO plans, please review the plan of care and approve it. It will need to be FAXED BACK to us at [phone] for Medicare purposes. For Medicare only, by signing this I certify the plan of care. Please let me know if there are questions or concerns regarding this plan of care. Physician Sign ature: Date:
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
--- NOTE | 2025-03-11 15:16 | HP.PTDCSUM ---
Discharge Summary D/C summary: It has been my pleasure to treat CHAUNCEY KENT referred by Dr. Darwin Ceballos MD, with the diagnosis of BACK PAIN for a total of 22 visit(s). Discharge Date: 03/11/25 Please see the following information for a summary of their discharge status. Subjective Subjective: Doing well no pain Pain Right Lower Extremity: Pain Intensity (Out of 10): 0 Bilateral Back: Pain Intensity (Out of 10): 0 B FEET: Pain Intensity (Out of 10): 0 R Knee: Pain Intensity (Out of 10): 0 Overall Improvement % Improvement: 75 Objective Objective/Function: POSTURE: mild forward posture GAIT: reciprocal pattern NEURO: c/o paresthesia/tingling ,reflexes L3-4,L4-L5 ,L5-S1 2/3 PALPATION: unremarkable FLEXABILITY: hamstrings WFL LUMBAR ROM : flexion WFL loss ,extension min/mod loss mild pain ,side glides WFL MMT: ( peak force) quads right 27.8 ,left 28.6 ,hamstrings 17.3 right ,left 19.9 ,hip flexion 26.9 right ,left 28.9 ,ankle 4/5 Goals Goal 1:: Patient to be I with Aquatic therapy program Goal Progress: Goal Met Goal 2:: Patient to improve lumbar ROM for function of recovery for lifting Goal Progress: Goal Met Goal 3:: Patient to demonstrate 50% improvement with less pain and improved function ( new goa) Goal Progress: Goal Met Goal 4:: Patient to improve peak force BLE quads/hams hip by 5-10 # to improve function( new goal) Goal Progress: Goal Met Goal 5:: Patient to improve back oswestry score by 5 points to improve QOL and function Goal Progress: Progressing Plan Plan: D/C D/C Information d/c sentence: If there are questions or concerns regarding this patient's physical therapy, please feel free to call me at [phone]. Thank you for the referral of this patient. Sincerely, Ab Brunson, PT, Cert MDT, OCS Balance/Gait/Functional tests Balance/Special Test Scores Oswestry Low Back Score: 3 Improvement % Improvement: 75
== END 2025-03-11 19:00 | disposition home or self-care (01) ==
LOC: PT 15:00
PROVIDERS: PCP Family Medicine; Referring Provider Anesthesiology Pain Medicine; Visit Provider Anesthesiology Pain Medicine
DX: M54.9 Dorsalgia, unspecified (principal); R26.81 Unsteadiness on feet
CPT/HCPCS: 97113; 97162; 97530; 97750